=== PATIENT | female | born 1965 | race Caucasian/White ===

== ENCOUNTER 2017-01-18 03:06 | Inpatient (IN) | payer MEDICAID, OTHER ==
[~2017-01-18] VITALS: Ht 162.6 cm; Wt 85.1 kg
[~2017-01-18 03:06] MED LIST: ASPI81TA3 PO; LANT3I SC; LISI-525 PO; Metformin Hcl PO; ZOC20 PO
--- NOTE | 2017-01-18 04:35 | RADRPT ---
PROCEDURE: Noncontrast CT Head. CLINICAL INDICATION: Pain. TECHNIQUE: Noncontrast CT of the head was obtained. The administered radiation dose was CTDI vol = 45 mGy, DLP = 720 mGy-cm. COMPARISON: 06/02/2015 FINDINGS: The ventricles and cortical sulci are mildly enlarged. There is mild decreased attenuation within t he periventricular and subcortical white matter compatible with chronic microvascular changes. There is no acute intracranial hemorrhage or extra-axial fluid collection. There is no mass effect . No midline shift is identified. There is no loss of mccarthy-white differentiation to suggest acute in farction. The orbits are within normal limits. The paranasal sinuses are well aerated. No destructive osseous lesion is identified. IMPRESSION: No acute findings. Mild diffuse parenchymal volume loss and chronic microvascular changes. RPTAT: HIKT .Patrick Gadnhi MD, MD Date Time Electronically viewed and signed by .Patrick Gandhi MD, on 01/18/2017 04:35 .T/
--- NOTE | 2017-01-18 04:39 | RADRPT ---
PROCEDURE: Chest. CLINICAL INDICATION: Chest pain. TECHNIQUE: Single frontal view of the chest was obtained. COMPARISON: 06/02/2015. FINDINGS: The cardiac silhouette is within normal limits. The aortic arch is unremarkable. There is no focal consolidation, vascular congestion or pleural effusion. There is no pneumothorax. IMPRESSION: No evidence for active cardiopulmonary disease. .Deonte Laughlin MD, Date Time Electronically viewed and signed by .Deonte Laughlin MD, on 01/18/2017 04:38 .T/
[2017-01-18 05:08] LABS: ADD SCAN DIFF NO
[2017-01-18 05:12] LABS: BASOPHILS % 0.4 % (0.0-2.0); EOSINOPHILS # 0.2 10^3/ul (0.0-0.5); EOSINOPHILS % 2.6 % (0.0-7.0); HEMATOCRIT 37.6 % (37.0-47.0); HEMOGLOBIN 11.9 g/dl (12.0-16.0); LYMPHOCYTES # 2.8 10^3/ul (0.8-2.9); LYMPHOCYTES % 35.5 % (15.0-51.0); MEAN CORPUSCULAR HEMOGLOBIN 29.6 pg (29.0-33.0); MEAN CORPUSCULAR HGB CONC 31.6 g/dl (32.0-37.0); MEAN CORPUSCULAR VOLUME 93.5 fl (82.0-101.0); MEAN PLATELET VOLUME 11.1 fl (7.4-10.4); MONOCYTE # 0.5 10^3/ul (0.3-0.9); MONOCYTES % 6.4 % (0.0-11.0); NEUTROPHIL # 4.4 10^3/ul (1.6-7.5); NEUTROPHILS % 54.7 % (39.0-77.0); PLATELET COUNT 232 10^3/UL (140-415); RED BLOOD COUNT 4.02 10^6/ul (4.20-5.40); RED CELL DISTRIBUTION WIDTH 12.8 % (11.5-14.5)
[2017-01-18 05:23] LABS: INR 0.89; PT RATIO 0.9
[2017-01-18 05:24] LABS: PARTIAL THROMBOPLASTIN TIME 30.5 Sec (25.0-35.0)
[2017-01-18 05:31] LABS: CHLORIDE 105 mmol/L (97-110); POTASSIUM 4.6 mmol/L (3.5-5.1); SODIUM 141 mmol/L (135-144)
[2017-01-18 05:34] LABS: ANION GAP 12 (8-16); BLOOD UREA NITROGEN 29 mg/dl (7-20); CARBON DIOXIDE 29 mmol/L (21-31); CREATININE 1.42 mg/dl (0.44-1.00)
[2017-01-18 05:35] LABS: CALCIUM 9.1 mg/dl (8.4-10.2); GLUCOSE 97 mg/dl (70-220)
--- NOTE | 2017-01-18 05:41 | ERA ---
ER Documentation Chief Complaint Date/Time DATE: 01/18/17 TIME: 05:40 Chief Complaint weakness, fainting a lot x 3 days, multiple falls x 3 days HPI This is a 51-year-old female weakness and multiple seizure-like episodes over the past 3 days. Patient started on Depakote yesterday but is since had 5 seizures. No fevers no chills no nausea no vomiting no tongue biting. Patient is nonfocal neurological. No other current complaints. ROS All systems reviewed and are negative except as per history of present illness. Medications Home Meds Active Scripts Simvastatin (Simvastatin) 20 Mg Tablet, 20 MG PO HS, #30 TAB 2 Refills Prov:JAMEY WISE MD 06/04/15 [Metformin Hcl] 500 MG TAB No Conflict Check, 1000 MG PO WITH BREAKFAST DINNE, # 60 TAB 2 Refills Prov:JAMEY WISE MD 06/04/15 Lisinopril* (Zestril*) 20 Mg Tab, 20 MG PO DAILY, #30 TAB 2 Refills Prov:JAMEY WISE MD 06/04/15 Aspirin (Aspirin) 81 Mg Chew, 81 MG PO DAILY, #30 TAB 2 Refills Prov:JAMEY WISE MD 06/04/15 Reported Medications Insulin Glargine* (Lantus*) 100 Unit/Ml Soln, 20 UNIT SC DAILY, EA 06/04/15 Allergies Allergies: Coded Allergies: No Known Allergy (Unverified , 06/03/15) PMhx/Soc History of Surgery: Yes (cataract surgery, retina surgery) Anesthesia Reaction: No Hx Neurological Disorder: Yes (neuropathy, possible seizures? hearing/vision loss) Hx Respiratory Disorders: No Hx Cardiac Disorders: Yes (HTN) Hx Psychiatric Problems: No Hx Miscellaneous Medical Probl: Yes (DM, MULTIPLE FALLS, cataracts) Hx Alcohol Use: No Hx Substance Use: No Hx Tobacco Use: No Smoking Status: Never smoker Physical Exam Vitals Vital Signs Date Time Temp Pulse Resp B/P Pulse Ox O2 Delivery O2 Flow Rate FiO2 01/18/17 05:06 72 14 144/58 100 Room Air 01/18/17 03:35 79 18 147/57 100 Room Air 01/18/17 03:11 98.5 87 20 82/49 98 Physical Exam Const: [] Head: Atraumatic Eyes: Normal Conjunctiva ENT: Normal External Ears, Nose and Mouth. Neck: Full range of motion..~ No meningismus. Resp: Clear to auscultation bilaterally Cardio: Regular rate and rhythm, no murmurs Abd: Soft, non tender, non distended. Normal bowel sounds Skin: No petechiae or rashes Back: No midline or flank tenderness Ext: No cyanosis, or edema Neur: Awake and alert Psych: Normal Mood and Affect Result Diagram: 01/18/17 0450 Results 24 hrs Laboratory Tests Test 01/18/17 03:52 01/18/17 04:50 Bedside Glucose 133mg/dL White Blood Count 8.010^3/ul Red Blood Count 4.0210^6/ul Hemoglobin 11.9g/dl Hematocrit 37.6% Mean Corpuscular Volume 93.5fl Mean Corpuscular Hemoglobin 29.6pg Mean Corpuscular Hemoglobin Concent 31.6g/dl Red Cell Distribution Width 12.8% Platelet Count 02909^3/UL Mean Platelet Volume 11.1fl Neutrophils % 54.7% Lymphocytes % 35.5% Monocytes % 6.4% Eosinophils % 2.6% Basophils % 0.4% Nucleated Red Blood Cells % 0.0/100WBC Neutrophils # 4.410^3/ul Lymphocytes # 2.810^3/ul Monocytes # 0.510^3/ul Eosinophils # 0.210^3/ul Basophils # 0.010^3/ul Nucleated Red Blood Cells # 0.010^3/ul Prothrombin Time 12.0Sec Prothrombin Time Ratio 0.9 INR International Normalized Ratio 0.89 Activated Partial Thromboplast Time 30.5Sec Procedures/MDM EKG: Rate/Rhythm: [Normal Sinus Rhythm] QRS, ST, T-waves: [No changes consistent w/ acute ischemia] Impression: [No evidence of ischemia or arrhythmia] Chest X-ray 1V Interpreted by me: Soft Tissue: No acute abnormalities Bones: No acute abnormalities Mediastinum/Cardiac Silhouette/Lungs: [No acute abnormalities] Medical decision-makin year female with what sounds to be recurrent seizures and multiple episodes. At this point I feel patient is to be admitted for stabilization of her seizure diagnosis. Patient will be admitted to hospitalist Departure Diagnosis: Primary Impression: Intractable seizure disorder Condition: Serious TAL LIU Jan 18, 2017 05:41
[2017-01-18 05:52] LABS: TROPONIN-I < 0.012 ng/ml (0.00-0.12)
[2017-01-18] MEDS ORDERED: ONDANSETRON 4 MG INJ IV PRN ×2 (06:30→07:00)
[2017-01-18] MEDS ORDERED: ACETAMINOPHEN 325 MG TAB PO PRN ×2 (06:30→07:00)
[2017-01-18] MEDS ORDERED: PANTOPRAZOLE (EC) 40 MG TAB PO ONE (07:00)
--- NOTE | 2017-01-18 07:29 | HP ---
Date/Time of Note Date/Time of Note DATE: 01/18/17 TIME: 07:25 Assessment/Plan Lines/Catheters IV C[facility]ter Type (from [facility]): Saline Lock Assessment/Plan Assessment/Plan 1. Probable Seizure - admit to telemetry unit - Cont Depakote with as needed ativan - Place neurology consult - Obtain MRI of the brain - Will Check TSH 2. Hx of Diabetes - cont insulin 3. HTN: BP within goal - Cont home med with adjustment as needed 4. Hx of Dyslipidemia - Cont med 5. Presumed DIANNE - IV hydration - Avoid nephrotoxins and renally dose all meds - Renal u/s and nephrology consult as needed HPI/ROS Admit Date/Time Admit Date/Time Hx of Present Illness Patient is a 51 yo female with hx of DM, HTN, DL. diabetic neuropathy who was brought in by family after repeated falls and weakness over the last few days. According to her daughter, within the last few years she has suffered sensory losses related to her diabetes which include mild hearing loss and visual changes. she underwent cataract surgery in November on her left eye. per her daughter she has recently been having 'episodes' in which she starts to laugh, then shake and fall backwards. she has recently been seeing a neurologist for this, has an MRI orderd but yet unscheduled. She started taking depokote yesterday. Today she has had 2 of these events. yesterday she fell in the shower and hurt her right shoulder. no deformity noted. she has generalized weakness throughout. denies head aches and shortness of breath. . PMH/Family/Social Social History Smoking Status: Never smoker Exam/Review of Systems Vital Signs Vitals Vital Signs Date Time Temp Pulse Resp B/P Pulse Ox O2 Delivery O2 Flow Rate FiO2 01/18/17 05:59 69 16 118/78 100 Room Air 01/18/17 03:11 98.5 Labs Result Diagram: 01/18/17 0450 01/18/17 0450 Medications Medications Current Medications Sodium Chloride (NS) 1,000 ml @ 125 mls/hr Q8H IV ; Start 01/18/17 at 07:00 Divalproex Sodium (Depakote) 250 mg BID ONCE PO ; Start 01/18/17 at 09:00; Stop 01/18/17 at 09:01 Ondansetron HCl (Zofran Inj) 4 mg Q6 PRN IV NAUSEA; Start 01/18/17 at 07:00 Acetaminophen (Tylenol Tab) 650 mg Q4 PRN PO FEVER GREATER THAN 100.6; Start at 07:00 TAL GRIMALDO MD Jan 18, 2017 07:29
[2017-01-18] MEDS: SOD CHLORIDE 0.9% 1,000 ML IV SCH ×5 (07:37→23:12)
[2017-01-18] MEDS ORDERED: NACL 0.9% 3 ML SYG IV SCH (09:00)
[2017-01-18] MEDS ORDERED: ASPIRIN 81 MG TAB PO SCH (09:00)
[2017-01-18] MEDS ORDERED: LORAZEPAM 2 MG INJ IV PRN (09:00)
[2017-01-18] MEDS ORDERED: GLUCAGON 1 MG INJ IM PRN (09:00)
[2017-01-18] MEDS ORDERED: GLUCOSE GEL 15 GRAM TUBE BUCCAL PRN (09:00)
[2017-01-18] MEDS ORDERED: DEXTROSE 50% 50 ML SYRINGE IV PRN ×2 (09:00)
[2017-01-18] MEDS ORDERED: DIVALPROEX (EC) 250 MG TAB PO ONE (09:00)
[2017-01-18] MEDS ORDERED: GLUCOSE GEL 15 GRAM TUBE PO PRN ×2 (09:00)
[2017-01-18] MEDS: ASPIRIN 81 MG TAB PO SCH (09:24)
[2017-01-18] MEDS: INSULIN GLARGINE [LANtus] 3 ML PEN SC SCH (10:20)
[2017-01-18] MEDS: LISINOPRIL 20 MG TAB PO SCH (10:21)
--- NOTE | 2017-01-18 11:45 | CONS ---
Date/Time of Note Date/Time of Note DATE: 01/18/17 TIME: 11:29 Assessment/Plan Assessment/Plan Chief Complaint/Hosp Course 51 year old female with history of diabetic neuropathy, hypertension, HLD frequent falls presents with 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 -MRI Brain w/o contrast planned this afternoon -Routine EEG check Depakote level -TSH, check B12, optimization of diabetes -PT/OT eval will follow for further recommendations Problems: Consultation Date/Type/Reason Admit Date/Time 01/18/17 Date of Consultation: Jan 18, 2017 Type of Consultation: Neurology Reason for Consultation evaluation for seizures, AMS Referring Provider: MEL MAYO Hx of Present Illness 51 year old female with history of DM, HTN, diabetic neuropathy with frequent falls and increasing weakness, s/p cataract surgery on left eye brought in by family for suspected gelastic seizures. Per documentation she has episodes where she laughs, has generalized shaking and falls backwards. No family at bedside to provide further history and patient reports she has been falling for over 2 hours, denies any seizure hx. Depakote was apparently initiated yesterday from an outside neurologist, the patient denies any new meds. falls Past Medical History diabetes neuropathy Social History Smoking Status: Never smoker Exam/Review of Systems Vital Signs Vitals Vital Signs Date Time Temp Pulse Resp B/P Pulse Ox O2 Delivery O2 Flow Rate FiO2 01/18/17 09:53 98.5 80 16 137/70 97 Room Air Exam awake and alert seems encephalopathic slow to respond left sided neglect CN: left pupil irregular non reactive right 2 mm reactive, EOMI no sig. facial asymmetry tongue midline Motor: no drift in arms strength is 5/5, LE 3/5 lifts briefly anti-gravity poor effort Sensory: left sided sensory neglect to DSS Coordination poor cooperation unable to test Reflexes: 2+ UE, 1+ KJ absent AJ toes are downgoing Results Result Diagram: 01/18/17 0450 01/18/17 0450 Results 24 hrs Laboratory Tests Test 01/18/17 03:52 01/18/17 04:50 01/18/17 10:18 Bedside Glucose 133 196 White Blood Count 8.0 Red Blood Count 4.02 #L Hemoglobin 11.9 #L Hematocrit 37.6 # Mean Corpuscular Volume 93.5 Mean Corpuscular Hemoglobin 29.6 Mean Corpuscular Hemoglobin Concent 31.6 L Red Cell Distribution Width 12.8 Platelet Count 232 Mean Platelet Volume 11.1 H Neutrophils % 54.7 Lymphocytes % 35.5 Monocytes % 6.4 Eosinophils % 2.6 Basophils % 0.4 Nucleated Red Blood Cells % 0.0 Neutrophils # 4.4 Lymphocytes # 2.8 Monocytes # 0.5 Eosinophils # 0.2 Basophils # 0.0 Nucleated Red Blood Cells # 0.0 Prothrombin Time 12.0 L Prothrombin Time Ratio 0.9 INR International Normalized Ratio 0.89 Activated Partial Thromboplast Time 30.5 Sodium Level 141 Potassium Level 4.6 Chloride Level 105 Carbon Dioxide Level 29 Anion Gap 12 Blood Urea Nitrogen 29 H Creatinine 1.42 H Glucose Level 97 Calcium Level 9.1 Troponin I < 0.012 Valproic Acid (Depakene) Level 36 L Medications Medications Current Medications Sodium Chloride (NS) 1,000 ml @ 125 mls/hr Q8H IV Last administered on 07:37; Admin Dose 125 MLS/HR; Start 01/18/17 at 07:00 Ondansetron HCl 4 mg 4 mg Q6 PRN IV NAUSEA; Start 01/18/17 at 07:00 Sodium Chloride (NS) 1,000 ml @ 100 mls/hr Q10H IV Last administered on 09:28; Admin Dose 100 MLS/HR; Start 01/18/17 at 08:47; Stop 01/19/17 at 08: 00 Lorazepam (Ativan) 2 mg Q1H PRN IV seizure; Start 01/18/17 at 09:00 Aspirin (Aspirin) 81 mg DAILY PO Last administered on 01/18/17 09:24; Admin Dose 81 MG; Start 01/18/17 at 09:00 Acetaminophen (Tylenol Tab) 650 mg Q6H PRN PO PAIN LEVEL 1-3 OR FEVER; Start at 09:00 Insulin Glargine (Lantus) 20 unit DAILY SC Last administered on 01/18/17 10:20 ; Admin Dose 20 UNIT; Start 01/18/17 at 09:00 Lisinopril (Zestril) 20 mg DAILY PO Last administered on 01/18/17 10:21; Admin Dose 20 MG; Start 01/18/17 at 09:00 Atorvastatin Calcium (Lipitor) 10 mg DAILY@21 PO ; Start 01/18/17 at 21:00 Miscellaneous Information 1 ea NOTE XX ; Start 01/18/17 at 09:00 Glucose (Glutose) 15 gm Q15M PRN PO DECREASED GLUCOSE; Start 01/18/17 at 09:00 Glucose (Glutose) 22.5 gm Q15M PRN PO DECREASED GLUCOSE; Start 01/18/17 at 09: 00 Dextrose (D50w Syringe) 25 ml Q15M PRN IV DECREASED GLUCOSE; Start 01/18/17 at 09:00 Dextrose (D50w Syringe) 50 ml Q15M PRN IV DECREASED GLUCOSE; Start 01/18/17 at 09:00 Glucagon (Glucagen) 1 mg Q15M PRN IM DECREASED GLUCOSE; Start 01/18/17 at 09:00 Glucose (Glutose) 15 gm Q15M PRN BUCCAL DECREASED GLUCOSE; Start 01/18/17 at 09 :00 CARLTON CHI MD Jan 18, 2017 11:40
--- NOTE | 2017-01-18 12:02 | RADRPT ---
PROCEDURE: MR Brain without contrast. CLINICAL INDICATION: Seizures TECHNIQUE: An MRI of the brain was performed on a high-resolution MR scanner utilizing the followi ng sequences: Sagittal and axial T1 weighted, axial T2 weighted, axial FLAIR, coronal GRE, and axial diffusion weighted with ADC mapping. Images were reviewed high-resolution PACS workstation. No con trast was administered. COMPARISON: Head CT earlier today FINDINGS: No acute parenchymal hemorrhage, mass effect, or midline shift. No evidence of recent infarct. Scatt ered subcortical, deep, and periventricular white matter T2-weighted/FLAIR hyperintensities are nons pecific. Thin right ocular lens. Curvilinear T1/FLAIR hyperintensity is identified in the right deanne be vitreous chamber. Mesial temporal lobes demonstrate normal signal intensity, volume and director enterprise data architecture ure. The ventricles are stable size. Normal flow voids are visible in the proximal intracranial arteries suggesting their patency. No significant opacification of the paranasal sinuses or mastoids. IMPRESSION: No acute intracranial abnormality identified. No evidence of recent infarct. No evidence of mesial temporal sclerosis. Scattered cerebral white matter signal changes are nonspecific and can be due to chronic headaches, microvascular disease, vasculitis, prior infection/trauma, or other etiologies. Thin right ocular lens could be due to prior lens replacement. Curvilinear T1/FLAIR hyperintensity is identified in the right globe vitreous chamber which may be due to prior hemorrhage, infection, o r inflammation. Recommend correlation with patient history and ophthalmic exam. RPTAT: AA .Epifanio Cerrato MD, Date Time Electronically viewed and signed by .Epifanio Cerrato MD, on 01/18/2017 12:02 .T/
[2017-01-18 16:38] VITALS: TEMP 98.5
--- NOTE | 2017-01-18 17:57 | SP ---
DATE OF PROCEDURE: 01/18/2017 TYPE OF REPORT: EEG. HISTORY: The patient is a 51-year-old woman with history of diabetic neuropathy with frequent falls. She was seen to be having episodes of uncontrolled laughing and generalized shaking and falling ba ckwards. EEG is to rule out seizure activity. CURRENT MEDICATIONS: Depakote. PROCEDURE: Utilizing a 16-channel EEG machine, cap scalp electrodes were applied in accordance with International 10-20 system. [id number] and [id number] montages were displayed. Electrical i mpedances were measured and reported. DESCRIPTION: During the resting state, posterior dominant rhythm of about 8 to 9 Hz was seen bihemi spherically. Photic stimulation had a good response. Hyperventilation was not performed. Bitempor al frontal sharps were noted at times during the tracing. INTERPRETATION: This is an abnormal EEG because of presence of bifrontal temporal sharps which coul d be epileptogenic. Please correlate these findings with the patient's clinical picture. Dictated By: AMEYA ODOM/STEPHANIE Conf#: [id number] DID#: [id number]
[2017-01-18] MEDS: metFORMIN 500 MG TAB PO SCH (18:00)
[2017-01-18 19:40] VITALS: BP 161/75; PULSE 82; RESP 19; Ht 162.6 cm; Wt 85.1 kg
[2017-01-18 20:00] VITALS: BP 161/75; RESP 19
[2017-01-18] MEDS ORDERED: DIVALPROEX (ER) 500 MG TAB PO ONE (21:00)
[2017-01-18] MEDS ORDERED: ATORVASTATIN 10 MG TAB PO SCH (21:00)
[2017-01-18] MEDS: DIVALPROEX (ER) 500 MG TAB PO SCH (22:37)
[2017-01-18] MEDS: INSULIN ASPART [NOVOLOG] 3 ML PEN SC SCH (22:39)
[2017-01-19] VITALS (12 sets, daily range): BP systolic 119–165; BP diastolic 61–77; PULSE 67–80; RESP 17–18
[2017-01-19] MEDS ORDERED: ACCU-CHEK XX SCH (02:00)
[2017-01-19] MEDS: ACCU-CHEK XX SCH (02:44)
[2017-01-19] MEDS: SOD CHLORIDE 0.9% 1,000 ML IV SCH ×4 (04:47→23:00)
[2017-01-19 07:49] LABS: ADD SCAN DIFF NO
[2017-01-19 07:58] LABS: BASOPHILS % 0.4 % (0.0-2.0); EOSINOPHILS # 0.2 10^3/ul (0.0-0.5); EOSINOPHILS % 2.7 % (0.0-7.0); HEMATOCRIT 32.7 % (37.0-47.0); HEMOGLOBIN 10.3 g/dl (12.0-16.0); LYMPHOCYTES # 3.5 10^3/ul (0.8-2.9); LYMPHOCYTES % 43.1 % (15.0-51.0); MEAN CORPUSCULAR HEMOGLOBIN 30.1 pg (29.0-33.0); MEAN CORPUSCULAR HGB CONC 31.5 g/dl (32.0-37.0); MEAN CORPUSCULAR VOLUME 95.6 fl (82.0-101.0); MEAN PLATELET VOLUME 10.9 fl (7.4-10.4); MONOCYTE # 0.5 10^3/ul (0.3-0.9); MONOCYTES % 6.7 % (0.0-11.0); NEUTROPHIL # 3.8 10^3/ul (1.6-7.5); NEUTROPHILS % 46.9 % (39.0-77.0); PLATELET COUNT 196 10^3/UL (140-415); RED BLOOD COUNT 3.42 10^6/ul (4.20-5.40); RED CELL DISTRIBUTION WIDTH 13.1 % (11.5-14.5); WHITE BLOOD COUNT 8.1 10^3/ul (4.8-10.8)
[2017-01-19 08:08] LABS: ALBUMIN 3.3 g/dl (3.3-4.9)
[2017-01-19 08:09] LABS: POTASSIUM 5.6 mmol/L (3.5-5.1)
[2017-01-19 08:11] LABS: ALBUMIN/GLOBULIN RATIO 0.8; BILIRUBIN,INDIRECT 0.2 mg/dl (0-1.1); BILIRUBIN,TOTAL 0.2 mg/dl (0.2-1.3); CREATININE 1.24 mg/dl (0.44-1.00); TOTAL PROTEIN 7.4 g/dl (6.1-8.1)
[2017-01-19 08:12] LABS: CALCIUM 8.5 mg/dl (8.4-10.2); CHOL/HDL RATIO 6.1 RATIO; MAGNESIUM 2.8 mg/dl (1.7-2.5)
[2017-01-19 08:41] LABS: THYROID STIMULATING HORMONE 1.68 MIU/L (0.465-4.680)
[2017-01-19] MEDS: DIVALPROEX (ER) 500 MG TAB PO SCH (08:42)
[2017-01-19] MEDS: LISINOPRIL 20 MG TAB PO SCH (08:42)
[2017-01-19] MEDS: metFORMIN 500 MG TAB PO SCH ×2 (08:42→17:50)
[2017-01-19] MEDS: ASPIRIN 81 MG TAB PO SCH (08:44)
[2017-01-19] MEDS: INSULIN ASPART [NOVOLOG] 3 ML PEN SC SCH ×6 (08:46→20:41)
[2017-01-19 12:29] LABS: POTASSIUM 5.5 mmol/L (3.5-5.1)
[2017-01-19 12:32] LABS: CREATININE 1.13 mg/dl (0.44-1.00)
[2017-01-19 12:33] LABS: CALCIUM 8.5 mg/dl (8.4-10.2)
[2017-01-19] MEDS: INSULIN GLARGINE [LANtus] 3 ML PEN SC SCH (12:36)
--- NOTE | 2017-01-19 12:45 | PN ---
Date/Time of Note Date/Time of Note DATE: 01/19/17 TIME: 11:39 Assessment/Plan VTE Prophylaxis VTE Prophylaxis Intervention: SCD's Lines/Catheters IV Catheter Type (from Nrsg): Peripheral IV Urinary Cath still in place: No Assessment/Plan Assessment/Plan 51 yo female with: 1. 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 Frequent falls Seizures confirmed on EEG and MRI brain with no acute findings but wll discuss with Neurology Cont Depakote per Neurology with Ativan prn, will discuss to increase Depakote to 500 mg po tid? Appreciate recommendations from Neurology, follow up further recs today TFTs and B12 pending . PT/OT eval pending 2. Diabetes Mellitus, Insulin requiring, continue Lantus and Metformin for now, adding pre meal insulin and continue SSI. A1c 7.6 DM education consult 3. Diabetic Neuropathy: for now stable 4. Hypertension: Continue Lisinopril. BP stable 5. Hyperlipidemia. Increase Lipitor to 40 mg po qhs. 5. Acute Kidney Injury: renal function improving with IVF, avoid nephrotoxins and renally dose all meds Renal US pending and IVF Repeat BMP pending today to f/u K level Prophylaxis: SCDs and Pepcid for GI ppx Disposition: Follow up with Neurology recs today Subjective 24 Hr Interval Summary Free Text/Dictation Patient lethargic and somnolent this AM, titrating Depakote doses PT/OT pending Afebrile, renal function improving Exam/Review of Systems Vital Signs Vitals Vital Signs Date Time Temp Pulse Resp B/P Pulse Ox O2 Delivery O2 Flow Rate FiO2 01/19/17 11:35 98.6 76 18 165/77 95 01/18/17 19:40 Nasal Cannula 2.0 Intake and Output 01/18/17 01/18/17 01/19/17 15:00 23:00 07:00 Intake Total 300 ml Balance 300 ml Exam Constitutional: alert, frail, other (lethargic) Respiratory: clear to auscultation, normal air movement Cardiovascular: nl pulses, regular rate and rhythm Gastrointestinal: non-tender, soft Musculoskeletal: nl extremities to inspection Extremities: normal pulses, other (no edema, clubbing or cyanosis ) Neurological: OIL SPREADER OPERATOR II-XII intact, lethargic, other (generalised weakness, possibly post ictal ) Results Result Diagram: 01/19/17 0630 01/19/17 0500 Results 24 hrs Laboratory Tests Test 01/18/17 14:55 01/18/17 21:45 01/19/17 02:03 01/19/17 05:00 Valproic Acid (Depakene) Level 27 L Bedside Glucose 274 H 270 H Sodium Level 139 Potassium Level 5.6 H Chloride Level 107 Carbon Dioxide Level 29 Anion Gap 9 Blood Urea Nitrogen 36 H Creatinine 1.24 H Glucose Level 254 #H Calcium Level 8.5 Magnesium Level 2.8 H Total Bilirubin 0.2 Direct Bilirubin 0.00 Indirect Bilirubin 0.2 Aspartate Amino Transf (AST/SGOT) 24 Alanine Aminotransferase (ALT/SGPT) 28 Alkaline Phosphatase 94 Total Protein 7.4 Albumin 3.3 Globulin 4.10 H Albumin/Globulin Ratio 0.80 Triglycerides Level 257 H Cholesterol Level 220 H LDL Cholesterol, Calculated 133 HDL Cholesterol 36 L Cholesterol/HDL Ratio 6.1 Thyroid Stimulating Hormone (TSH) 1.680 Test 01/19/17 06:30 01/19/17 06:38 01/19/17 08:08 White Blood Count 8.1 Red Blood Count 3.42 L Hemoglobin 10.3 L Hematocrit 32.7 L Mean Corpuscular Volume 95.6 Mean Corpuscular Hemoglobin 30.1 Mean Corpuscular Hemoglobin Concent 31.5 L Red Cell Distribution Width 13.1 Platelet Count 196 Mean Platelet Volume 10.9 H Neutrophils % 46.9 Lymphocytes % 43.1 Monocytes % 6.7 Eosinophils % 2.7 Basophils % 0.4 Nucleated Red Blood Cells % 0.0 Neutrophils # 3.8 Lymphocytes # 3.5 H Monocytes # 0.5 Eosinophils # 0.2 Basophils # 0.0 Nucleated Red Blood Cells # 0.0 Hemoglobin A1c 7.6 H Phosphorus Level 4.5 Free Thyroxine 0.89 Bedside Glucose 223 H Medications Medications Current Medications Sodium Chloride (NS) 1,000 ml @ 125 mls/hr Q8H IV Last administered on 07:36; Admin Dose 125 MLS/HR; Start 01/18/17 at 07:00 Ondansetron HCl (Zofran Inj) 4 mg Q6 PRN IV NAUSEA; Start 01/18/17 at 07:00 Lorazepam (Ativan) 2 mg Q1H PRN IV seizure; Start 01/18/17 at 09:00 Aspirin (Aspirin) 81 mg DAILY PO Last administered on 01/19/17 08:44; Admin Dose 81 MG; Start 01/18/17 at 09:00 Acetaminophen (Tylenol Tab) 650 mg Q6H PRN PO PAIN LEVEL 1-3 OR FEVER; Start at 09:00 Insulin Glargine (Lantus) 20 unit DAILY SC Last administered on 01/18/17 10:20 ; Admin Dose 20 UNIT; Start 01/18/17 at 09:00 Lisinopril (Zestril) 20 mg DAILY PO Last administered on 01/19/17 08:42; Admin Dose 20 MG; Start 01/18/17 at 09:00 Atorvastatin Calcium (Lipitor) 10 mg DAILY@21 PO Last administered on 21:46; Admin Dose 10 MG; Start 01/18/17 at 21:00 Miscellaneous Information 1 ea NOTE XX ; Start 01/18/17 at 09:00 Glucose (Glutose) 15 gm Q15M PRN PO DECREASED GLUCOSE; Start 01/18/17 at 09:00 Glucose (Glutose) 22.5 gm Q15M PRN PO DECREASED GLUCOSE; Start 01/18/17 at 09: 00 Dextrose (D50w Syringe) 25 ml Q15M PRN IV DECREASED GLUCOSE; Start 01/18/17 at 09:00 Dextrose (D50w Syringe) 50 ml Q15M PRN IV DECREASED GLUCOSE; Start 01/18/17 at 09:00 Glucagon (Glucagen) 1 mg Q15M PRN IM DECREASED GLUCOSE; Start 01/18/17 at 09:00 Glucose (Glutose) 15 gm Q15M PRN BUCCAL DECREASED GLUCOSE; Start 01/18/17 at 09 :00 Divalproex Sodium (Depakote Er) 500 mg BID PO Last administered on 01/19/17 08 :42; Admin Dose 500 MG; Start 01/18/17 at 21:00 Diagnostic Test (Pha) (Accu-Chek) 1 ea 02 XX Last administered on 01/19/17 02: 44; Admin Dose 1 EA; Start 01/19/17 at 02:00 Influenza Virus Vaccine (Fluzone) 0.5 ml ONCE ONCE IM* ; Start 01/20/17 at 09:00 ; Stop 01/20/17 at 09:01 Procedures Procedures PROCEDURE: MR Brain without contrast. CLINICAL INDICATION: Seizures TECHNIQUE: An MRI of the brain was performed on a high-resolution MR scanner utilizing the following sequences: Sagittal and axial T1 weighted, axial T2 weighted, axial FLAIR, coronal GRE, and axial diffusion weighted with ADC mapping. Images were reviewed high-resolution PACS workstation. No contrast was administered. COMPARISON: Head CT earlier today FINDINGS: No acute parenchymal hemorrhage, mass effect, or midline shift. No evidence of recent infarct. Scattered subcortical, deep, and periventricular white matter T2 -weighted/FLAIR hyperintensities are nonspecific. Thin right ocular lens. Curvilinear T1/FLAIR hyperintensity is identified in the right globe vitreous chamber. Mesial temporal lobes demonstrate normal signal intensity, volume and architecture. The ventricles are stable size. Normal flow voids are visible in the proximal intracranial arteries suggesting their patency. No significant opacification of the paranasal sinuses or mastoids. IMPRESSION: No acute intracranial abnormality identified. No evidence of recent infarct. No evidence of mesial temporal sclerosis. Scattered cerebral white matter signal changes are nonspecific and can be due to chronic headaches, microvascular disease, vasculitis, prior infection/trauma , or other etiologies. Thin right ocular lens could be due to prior lens replacement. Curvilinear T1/ FLAIR hyperintensity is identified in the right globe vitreous chamber which may be due to prior hemorrhage, infection, or inflammation. Recommend correlation with patient history and ophthalmic exam. DANYELL SALAMANCA Jan 19, 2017 12:01
--- NOTE | 2017-01-19 15:59 | CONS ---
Date/Time of Note Date/Time of Note DATE: 01/19/17 TIME: 15:53 Consult Date/Type/Reason Admit Date/Time Jan 18, 2017 at 05:45 Initial Consult Date 01/18/17 Type of Consultation: Neurology Reason for Consultation seizures Ordering Provider: MEL MAYO Subjective no seizures overnight remained stable EEG showed bifrontal temporal sharps Objective Vital Signs Date Time Temp Pulse Resp B/P Pulse Ox O2 Delivery O2 Flow Rate FiO2 01/19/17 15:12 98.3 75 17 135/65 96 01/18/17 19:40 Nasal Cannula 2.0 Intake and Output 01/18/17 01/18/17 01/19/17 15:00 23:00 07:00 Intake Total 300 ml Balance 300 ml Exam awake and alert oriented to self, VPH follows commands slowly slow to respond CN: left pupil irregular non reactive right 2 mm reactive, EOMI no sig. facial asymmetry tongue midline Motor: no drift in arms strength is 5/5, LE briefly anti-gravity poor effort Sensory: left sided sensory neglect to DSS Coordination poor cooperation unable to test Reflexes: 2+ UE, 1+ KJ absent AJ toes are downgoing Results/Medications Result Diagram: 01/19/17 0630 01/19/17 1204 Results 24 hrs Laboratory Tests Test 01/18/17 21:45 01/19/17 02:03 01/19/17 05:00 01/19/17 06:30 Bedside Glucose 274 H 270 H Sodium Level 139 Potassium Level 5.6 H Chloride Level 107 Carbon Dioxide Level 29 Anion Gap 9 Blood Urea Nitrogen 36 H Creatinine 1.24 H Glucose Level 254 #H Calcium Level 8.5 Magnesium Level 2.8 H Total Bilirubin 0.2 Direct Bilirubin 0.00 Indirect Bilirubin 0.2 Aspartate Amino Transf (AST/SGOT) 24 Alanine Aminotransferase (ALT/SGPT) 28 Alkaline Phosphatase 94 Total Protein 7.4 Albumin 3.3 Globulin 4.10 H Albumin/Globulin Ratio 0.80 Triglycerides Level 257 H Cholesterol Level 220 H LDL Cholesterol, Calculated 133 HDL Cholesterol 36 L Cholesterol/HDL Ratio 6.1 Thyroid Stimulating Hormone (TSH) 1.680 White Blood Count 8.1 Red Blood Count 3.42 L Hemoglobin 10.3 L Hematocrit 32.7 L Mean Corpuscular Volume 95.6 Mean Corpuscular Hemoglobin 30.1 Mean Corpuscular Hemoglobin Concent 31.5 L Red Cell Distribution Width 13.1 Platelet Count 196 Mean Platelet Volume 10.9 H Neutrophils % 46.9 Lymphocytes % 43.1 Monocytes % 6.7 Eosinophils % 2.7 Basophils % 0.4 Nucleated Red Blood Cells % 0.0 Neutrophils # 3.8 Lymphocytes # 3.5 H Monocytes # 0.5 Eosinophils # 0.2 Basophils # 0.0 Nucleated Red Blood Cells # 0.0 Hemoglobin A1c 7.6 H Phosphorus Level 4.5 Test 01/19/17 06:38 01/19/17 08:08 01/19/17 11:59 01/19/17 12:04 Vitamin B12 Level 809 Free Thyroxine 0.89 Bedside Glucose 223 H 209 Sodium Level 140 Potassium Level 5.5 H Chloride Level 107 Carbon Dioxide Level 28 Anion Gap 11 Blood Urea Nitrogen 32 H Creatinine 1.13 H Glucose Level 225 H Calcium Level 8.5 Medications Current Medications Sodium Chloride (NS) 1,000 ml @ 125 mls/hr Q8H IV Last administered on 07:36; Admin Dose 125 MLS/HR; Start 01/18/17 at 07:00 Ondansetron HCl (Zofran Inj) 4 mg Q6 PRN IV NAUSEA; Start 01/18/17 at 07:00 Lorazepam (Ativan) 2 mg Q1H PRN IV seizure; Start 01/18/17 at 09:00 Aspirin (Aspirin) 81 mg DAILY PO Last administered on 01/19/17 08:44; Admin Dose 81 MG; Start 01/18/17 at 09:00 Acetaminophen (Tylenol Tab) 650 mg Q6H PRN PO PAIN LEVEL 1-3 OR FEVER; Start at 09:00 Insulin Glargine (Lantus) 20 unit DAILY SC Last administered on 01/19/17 12:36 ; Admin Dose 20 UNIT; Start 01/18/17 at 09:00 Lisinopril (Zestril) 20 mg DAILY PO Last administered on 01/19/17 08:42; Admin Dose 20 MG; Start 01/18/17 at 09:00 Miscellaneous Information 1 ea NOTE XX ; Start 01/18/17 at 09:00 Glucose (Glutose) 15 gm Q15M PRN PO DECREASED GLUCOSE; Start 01/18/17 at 09:00 Glucose (Glutose) 22.5 gm Q15M PRN PO DECREASED GLUCOSE; Start 01/18/17 at 09: 00 Dextrose (D50w Syringe) 25 ml Q15M PRN IV DECREASED GLUCOSE; Start 01/18/17 at 09:00 Dextrose (D50w Syringe) 50 ml Q15M PRN IV DECREASED GLUCOSE; Start 01/18/17 at 09:00 Glucagon (Glucagen) 1 mg Q15M PRN IM DECREASED GLUCOSE; Start 01/18/17 at 09:00 Glucose (Glutose) 15 gm Q15M PRN BUCCAL DECREASED GLUCOSE; Start 01/18/17 at 09 :00 Diagnostic Test (Pha) (Accu-Chek) 1 ea 02 XX Last administered on 01/19/17t 02: 44; Admin Dose 1 EA; Start 01/19/17 at 02:00 Influenza Virus Vaccine (Fluzone) 0.5 ml ONCE ONCE IM* ; Start 01/20/17 at 09:00 ; Stop 01/20/17 at 09:01 Atorvastatin Calcium (Lipitor) 40 mg DAILY@21 PO ; Start 01/19/17 at 21:00 Hydralazine HCl (Apresoline) 10 mg Q8H PRN IV ELEVATED BLOOD PRESSURE; Start at 13:00 Divalproex Sodium (Depakote Er) 750 mg BID PO ; Start 01/19/17 at 21:00 Assessment/Plan Chief Complaint/Hosp Course 51 year old female with history of diabetic neuropathy, hypertension, HLD frequent falls presents with 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 EEG showed frontal temporal sharps with epileptogenic potential. MRI Brain w/o contrast unrevealing for any acute process. Recommendations: -may increase Depakote to 750 mg q12h, recheck level -low dose ativan prn for further seizure activity -seizure precautions -PT evaluation placed, may benefit from outpatient PT for frequent falls dc planning Problems: CARLTON CHI MD Jan 19, 2017 15:59
[2017-01-19] MEDS: ATORVASTATIN 40 MG TAB PO SCH (20:42)
[2017-01-19] MEDS: DIVALPROEX (ER) 250 MG TAB PO SCH (21:26)
[2017-01-19] MEDS: hydrALAzine 20 MG INJ IV PRN (23:53)
[2017-01-20] VITALS (12 sets, daily range): BP systolic 142–175; BP diastolic 56–77; PULSE 75–90; RESP 17–18
[2017-01-20] MEDS: ACCU-CHEK XX SCH (02:07)
[2017-01-20 07:43] LABS: ADD SCAN DIFF NO
[2017-01-20 07:51] LABS: BASOPHILS % 0.3 % (0.0-2.0); EOSINOPHILS # 0.2 10^3/ul (0.0-0.5); EOSINOPHILS % 2.7 % (0.0-7.0); HEMOGLOBIN 10.1 g/dl (12.0-16.0); LYMPHOCYTES # 3.7 10^3/ul (0.8-2.9); LYMPHOCYTES % 41.8 % (15.0-51.0); MEAN CORPUSCULAR HEMOGLOBIN 30.4 pg (29.0-33.0); MEAN CORPUSCULAR HGB CONC 32.6 g/dl (32.0-37.0); MEAN CORPUSCULAR VOLUME 93.4 fl (82.0-101.0); MEAN PLATELET VOLUME 10.8 fl (7.4-10.4); MONOCYTE # 0.6 10^3/ul (0.3-0.9); MONOCYTES % 6.9 % (0.0-11.0); NEUTROPHIL # 4.2 10^3/ul (1.6-7.5); NEUTROPHILS % 48.1 % (39.0-77.0); PLATELET COUNT 206 10^3/UL (140-415); RED BLOOD COUNT 3.32 10^6/ul (4.20-5.40); RED CELL DISTRIBUTION WIDTH 12.6 % (11.5-14.5); WHITE BLOOD COUNT 8.8 10^3/ul (4.8-10.8)
[2017-01-20 08:00] LABS: PHOSPHORUS 3.7 mg/dl (2.5-4.9)
[2017-01-20 08:01] LABS: POTASSIUM 4.8 mmol/L (3.5-5.1)
[2017-01-20 08:04] LABS: CALCIUM 8.5 mg/dl (8.4-10.2)
[2017-01-20] MEDS: SOD CHLORIDE 0.9% 1,000 ML IV SCH ×2 (08:20→14:27)
[2017-01-20] MEDS: DIVALPROEX (ER) 250 MG TAB PO SCH ×2 (08:20→20:37)
[2017-01-20] MEDS: metFORMIN 500 MG TAB PO SCH ×2 (08:21→17:35)
[2017-01-20] MEDS: LISINOPRIL 20 MG TAB PO SCH ×2 (08:21→20:38)
[2017-01-20] MEDS: ACETAMINOPHEN 325 MG TAB PO PRN ×2 (08:21→23:51)
[2017-01-20] MEDS: ASPIRIN 81 MG TAB PO SCH (08:21)
[2017-01-20] MEDS: INSULIN ASPART [NOVOLOG] 3 ML PEN SC SCH ×7 (08:26→20:40)
[2017-01-20] MEDS: INSULIN GLARGINE [LANtus] 3 ML PEN SC SCH (08:28)
[2017-01-20] MEDS ORDERED: INFLUENZA VIRUS VACCINE 0.5 ML (DISPENSING) IM* ONE (09:00)
--- NOTE | 2017-01-20 11:54 | CONS ---
Date/Time of Note Date/Time of Note DATE: 01/20/17 TIME: 11:51 Consult Date/Type/Reason Admit Date/Time Jan 18, 2017 at 05:45 Initial Consult Date 01/18/17 Type of Consultation: Neurology Reason for Consultation seizure management Ordering Provider: MEL MAYO Subjective no events overnight encephalopathy improving Objective Vital Signs Date Time Temp Pulse Resp B/P Pulse Ox O2 Delivery O2 Flow Rate FiO2 01/20/17 11:40 98.1 77 18 158/67 96 01/18/17 19:40 Nasal Cannula 2.0 Intake and Output 01/19/17 01/19/17 01/20/17 15:00 23:00 07:00 Intake Total 850 ml 200 ml Output Total 1600 ml Balance -750 ml 200 ml Exam awake and alert oriented to self, VPH follows commands slowly slow to respond CN: left pupil irregular non reactive right 2 mm reactive, EOMI no sig. facial asymmetry tongue midline Motor: no drift in arms strength is 5/5, LE briefly anti-gravity poor effort Sensory: left sided sensory neglect to DSS Coordination poor cooperation unable to test Reflexes: 2+ UE, 1+ KJ absent AJ toes are downgoing Results/Medications Result Diagram: 01/20/17 0710 01/20/17 0710 Results 24 hrs Laboratory Tests Test 01/19/17 11:59 01/19/17 12:04 01/19/17 16:30 01/19/17 20:41 Bedside Glucose 209 83 141 Sodium Level 140 Potassium Level 5.5 H Chloride Level 107 Carbon Dioxide Level 28 Anion Gap 11 Blood Urea Nitrogen 32 H Creatinine 1.13 H Glucose Level 225 H Calcium Level 8.5 Test 01/20/17 07:10 01/20/17 07:59 01/20/17 11:38 White Blood Count 8.8 Red Blood Count 3.32 L Hemoglobin 10.1 L Hematocrit 31.0 L Mean Corpuscular Volume 93.4 Mean Corpuscular Hemoglobin 30.4 Mean Corpuscular Hemoglobin Concent 32.6 Red Cell Distribution Width 12.6 Platelet Count 206 Mean Platelet Volume 10.8 H Neutrophils % 48.1 Lymphocytes % 41.8 Monocytes % 6.9 Eosinophils % 2.7 Basophils % 0.3 Nucleated Red Blood Cells % 0.0 Neutrophils # 4.2 Lymphocytes # 3.7 H Monocytes # 0.6 Eosinophils # 0.2 Basophils # 0.0 Nucleated Red Blood Cells # 0.0 Sodium Level 141 Potassium Level 4.8 Chloride Level 108 Carbon Dioxide Level 28 Anion Gap 10 Blood Urea Nitrogen 23 H Creatinine 1.00 Glucose Level 161 Calcium Level 8.5 Phosphorus Level 3.7 Magnesium Level 2.0 Valproic Acid (Depakene) Level 53 Bedside Glucose 169 113 Medications Current Medications Sodium Chloride (NS) 1,000 ml @ 125 mls/hr Q8H IV Last administered on 08:20; Admin Dose 125 MLS/HR; Start 01/18/17 at 07:00 Ondansetron HCl (Zofran Inj) 4 mg Q6 PRN IV NAUSEA; Start 01/18/17 at 07:00 Lorazepam (Ativan) 2 mg Q1H PRN IV seizure; Start 01/18/17 at 09:00 Aspirin (Aspirin) 81 mg DAILY PO Last administered on 01/20/17 08:21; Admin Dose 81 MG; Start 01/18/17 at 09:00 Acetaminophen (Tylenol Tab) 650 mg Q6H PRN PO PAIN LEVEL 1-3 OR FEVER Last administered on 01/20/17 08:21; Admin Dose 650 MG; Start 01/18/17 at 09:00 Insulin Glargine (Lantus) 20 unit DAILY SC Last administered on 01/20/17 08:28 ; Admin Dose 20 UNIT; Start 01/18/17 at 09:00 Lisinopril (Zestril) 20 mg DAILY PO Last administered on 01/20/17 08:21; Admin Dose 20 MG; Start 01/18/17 at 09:00 Miscellaneous Information 1 ea NOTE XX ; Start 01/18/17 at 09:00 Glucose (Glutose) 15 gm Q15M PRN PO DECREASED GLUCOSE; Start 01/18/17 at 09:00 Glucose (Glutose) 22.5 gm Q15M PRN PO DECREASED GLUCOSE; Start 01/18/17 at 09: 00 Dextrose (D50w Syringe) 25 ml Q15M PRN IV DECREASED GLUCOSE; Start 01/18/17 at 09:00 Dextrose (D50w Syringe) 50 ml Q15M PRN IV DECREASED GLUCOSE; Start 01/18/17 at 09:00 Glucagon (Glucagen) 1 mg Q15M PRN IM DECREASED GLUCOSE; Start 01/18/17 at 09:00 Glucose (Glutose) 15 gm Q15M PRN BUCCAL DECREASED GLUCOSE; Start 01/18/17 at 09 :00 Diagnostic Test (Pha) (Accu-Chek) 1 ea 02 XX Last administered on 01/20/17 02: 07; Admin Dose 1 EA; Start 01/19/17 at 02:00 Atorvastatin Calcium (Lipitor) 40 mg DAILY@21 PO Last administered on 20:42; Admin Dose 40 MG; Start 01/19/17 at 21:00 Hydralazine HCl (Apresoline) 10 mg Q8H PRN IV ELEVATED BLOOD PRESSURE Last administered on 01/19/17 23:53; Admin Dose 10 MG; Start 01/19/17 at 13:00 Divalproex Sodium (Depakote Er) 750 mg BID PO Last administered on 01/20/17 08 :20; Admin Dose 750 MG; Start 01/19/17 at 21:00 Assessment/Plan Chief Complaint/Hosp Course 51 year old female with history of diabetic neuropathy, hypertension, HLD frequent falls presents with 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 EEG showed frontal temporal sharps with epileptogenic potential. MRI Brain w/o contrast unrevealing for any acute process. Recommendations: -continue on Depakote to 750 mg q12h, level this am: 53 wnl -low dose ativan prn for further seizure activity -seizure precautions -PT evaluation placed, may benefit from outpatient PT for frequent falls dc planning, outpatient neurology follow up per patient she has a neurologist in [place] she may continue to see Problems: CARLTON CHI MD Jan 20, 2017 11:53
--- NOTE | 2017-01-20 15:04 | PN ---
Date/Time of Note Date/Time of Note DATE: 01/20/17 TIME: 14:39 Assessment/Plan VTE Prophylaxis VTE Prophylaxis Intervention: SCD's Lines/Catheters IV Catheter Type (from Nrsg): Peripheral IV Urinary Cath still in place: No Assessment/Plan Assessment/Plan 51 yo female with: 1. 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 Frequent falls . PT eval pending Seizures confirmed on EEG and MRI brain with no acute findings but wll discuss with Neurology Cont Depakote at current dose of 750 mg po bid Appreciate recommendations from Neurology, for d/c plan with outpatient PT vs Home PT. TFTs and B12 wnl . PT/OT eval for discharge. 2. Diabetes Mellitus, Insulin requiring, continue Lantus and Metformin for now, adding pre meal insulin and continue SSI. A1c 7.6 DM education consult 3. Diabetic Neuropathy: for now stable 4. Hypertension: Continue Lisinopril. BP stable 5. Hyperlipidemia. Increase Lipitor to 40 mg po qhs. 5. Acute Kidney Injury: renal function resolved, avoid nephrotoxins and renally dose all meds Renal US wnl. Prophylaxis: SCDs and Pepcid for GI ppx Disposition: Follow up with Neurology recs today Subjective 24 Hr Interval Summary Free Text/Dictation Patient doing better today Awake and alert Ongoing unsteady gait No seizures on Depakote Stable for discharge pending PT eval now Exam/Review of Systems Vital Signs Vitals Vital Signs Date Time Temp Pulse Resp B/P Pulse Ox O2 Delivery O2 Flow Rate FiO2 01/20/17 12:30 76 01/20/17 11:40 98.1 18 158/67 96 01/18/17 19:40 Nasal Cannula 2.0 Intake and Output 01/19/17 01/19/17 01/20/17 15:00 23:00 07:00 Intake Total 850 ml 200 ml Output Total 1600 ml Balance -750 ml 200 ml Exam Constitutional: alert, oriented, other (Patially blind ), well developed Respiratory: clear to auscultation, normal air movement Cardiovascular: nl pulses, regular rate and rhythm Gastrointestinal: non-tender, soft Musculoskeletal: nl extremities to inspection Extremities: normal pulses, other (no edema, clubbing or cyanosis ) Neurological: nl mental status, nl speech, other (partially blind) Results Result Diagram: 01/20/17 0710 01/20/17 0710 Results 24 hrs Laboratory Tests Test 01/19/17 16:30 01/19/17 20:41 01/20/17 07:10 01/20/17 07:59 Bedside Glucose 83 141 169 White Blood Count 8.8 Red Blood Count 3.32 L Hemoglobin 10.1 L Hematocrit 31.0 L Mean Corpuscular Volume 93.4 Mean Corpuscular Hemoglobin 30.4 Mean Corpuscular Hemoglobin Concent 32.6 Red Cell Distribution Width 12.6 Platelet Count 206 Mean Platelet Volume 10.8 H Neutrophils % 48.1 Lymphocytes % 41.8 Monocytes % 6.9 Eosinophils % 2.7 Basophils % 0.3 Nucleated Red Blood Cells % 0.0 Neutrophils # 4.2 Lymphocytes # 3.7 H Monocytes # 0.6 Eosinophils # 0.2 Basophils # 0.0 Nucleated Red Blood Cells # 0.0 Sodium Level 141 Potassium Level 4.8 Chloride Level 108 Carbon Dioxide Level 28 Anion Gap 10 Blood Urea Nitrogen 23 H Creatinine 1.00 Glucose Level 161 Calcium Level 8.5 Phosphorus Level 3.7 Magnesium Level 2.0 Valproic Acid (Depakene) Level 53 Test 01/20/17 11:38 Bedside Glucose 113 Medications Medications Current Medications Sodium Chloride (NS) 1,000 ml @ 125 mls/hr Q8H IV Last administered on 08:20; Admin Dose 125 MLS/HR; Start 01/18/17 at 07:00 Ondansetron HCl (Zofran Inj) 4 mg Q6 PRN IV NAUSEA; Start 01/18/17 at 07:00 Lorazepam (Ativan) 2 mg Q1H PRN IV seizure; Start 01/18/17 at 09:00 Aspirin (Aspirin) 81 mg DAILY PO Last administered on 01/20/17 08:21; Admin Dose 81 MG; Start 01/18/17 at 09:00 Acetaminophen (Tylenol Tab) 650 mg Q6H PRN PO PAIN LEVEL 1-3 OR FEVER Last administered on 01/20/17 08:21; Admin Dose 650 MG; Start 01/18/17 at 09:00 Insulin Glargine (Lantus) 20 unit DAILY SC Last administered on 01/20/17 08:28 ; Admin Dose 20 UNIT; Start 01/18/17 at 09:00 Lisinopril (Zestril) 20 mg DAILY PO Last administered on 01/20/17 08:21; Admin Dose 20 MG; Start 01/18/17 at 09:00 Miscellaneous Information 1 ea NOTE XX ; Start 01/18/17 at 09:00 Glucose (Glutose) 15 gm Q15M PRN PO DECREASED GLUCOSE; Start 01/18/17 at 09:00 Glucose (Glutose) 22.5 gm Q15M PRN PO DECREASED GLUCOSE; Start 01/18/17 at 09: 00 Dextrose (D50w Syringe) 25 ml Q15M PRN IV DECREASED GLUCOSE; Start 01/18/17 at 09:00 Dextrose (D50w Syringe) 50 ml Q15M PRN IV DECREASED GLUCOSE; Start 01/18/17 at 09:00 Glucagon (Glucagen) 1 mg Q15M PRN IM DECREASED GLUCOSE; Start 01/18/17 at 09:00 Glucose (Glutose) 15 gm Q15M PRN BUCCAL DECREASED GLUCOSE; Start 01/18/17 at 09 :00 Diagnostic Test (Pha) (Accu-Chek) 1 ea 02 XX Last administered on 01/20/17 02: 07; Admin Dose 1 EA; Start 01/19/17 at 02:00 Atorvastatin Calcium (Lipitor) 40 mg DAILY@21 PO Last administered on 20:42; Admin Dose 40 MG; Start 01/19/17 at 21:00 Hydralazine HCl (Apresoline) 10 mg Q8H PRN IV ELEVATED BLOOD PRESSURE Last administered on 01/19/17 23:53; Admin Dose 10 MG; Start 01/19/17 at 13:00 Divalproex Sodium (Depakote Er) 750 mg BID PO Last administered on 01/20/17 08 :20; Admin Dose 750 MG; Start 01/19/17 at 21:00 DANYELL SALAMANCA Jan 20, 2017 15:04
--- NOTE | 2017-01-20 15:19 | PDOCDIS ---
Discharge Instructions CONDITION Patient Condition: Stable HOME CARE INSTRUCTIONS: Special Diet: ADA diet ACTIVITY: Activity Restrictions: Slowly Increase Activity FOLLOW UP/APPOINTMENTS Appointments Follow up with PCP within 1 week Referral to Neurology outpatient re seizure disorder in 2 to 4 weeks DANYELL SALAMANCA Jan 20, 2017 15:19
[2017-01-20] MEDS ORDERED: METF1000 PO (15:29)
[2017-01-20] MEDS ORDERED: ZOC20 PO (15:29)
[2017-01-20] MEDS ORDERED: ASPI81TA3 PO (15:29)
[2017-01-20] MEDS ORDERED: LANT3I SC (15:29)
[2017-01-20] MEDS ORDERED: DIVA250T4 PO (15:29)
[2017-01-20] MEDS ORDERED: NOVO3I SC (15:29)
[2017-01-20] MEDS ORDERED: LISI-525 PO (15:29)
[2017-01-20] MEDS: hydrALAzine 20 MG INJ IV PRN (20:01)
[2017-01-20] MEDS: ATORVASTATIN 40 MG TAB PO SCH (20:37)
[2017-01-21] VITALS (7 sets, daily range): BP systolic 92–181; BP diastolic 55–84; PULSE 73–90; RESP 18
[2017-01-21] MEDS: ACCU-CHEK XX SCH (02:00)
[2017-01-21] MEDS: hydrALAzine 20 MG INJ IV PRN (04:23)
[2017-01-21] MEDS: INSULIN ASPART [NOVOLOG] 3 ML PEN SC SCH ×3 (07:55→08:49)
[2017-01-21 08:33] LABS: POTASSIUM 5.3 mmol/L (3.5-5.1)
[2017-01-21 08:35] LABS: CREATININE 1.19 mg/dl (0.44-1.00)
[2017-01-21 08:36] LABS: CALCIUM 8.9 mg/dl (8.4-10.2)
[2017-01-21] MEDS: metFORMIN 500 MG TAB PO SCH (08:36)
[2017-01-21] MEDS: LISINOPRIL 20 MG TAB PO SCH (08:37)
[2017-01-21] MEDS: DIVALPROEX (ER) 250 MG TAB PO SCH (08:37)
[2017-01-21] MEDS: ASPIRIN 81 MG TAB PO SCH (08:45)
[2017-01-21] MEDS: INSULIN GLARGINE [LANtus] 3 ML PEN SC SCH (08:54)
--- NOTE | 2017-01-21 11:13 | PN ---
Date/Time of Note Date/Time of Note DATE: 01/21/17 TIME: 11:04 Assessment/Plan VTE Prophylaxis VTE Prophylaxis Intervention: SCD's Lines/Catheters IV Catheter Type (from Nrsg): Peripheral IV Urinary Cath still in place: No Assessment/Plan Assessment/Plan 51 yo female with: 1. 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 Frequent falls. PT eval pending Seizures confirmed on EEG and MRI brain with no acute findings but wll discuss with Neurology Cont Depakote at current dose of 750 mg po bid Appreciate recommendations from Neurology, SNF transfer this AM TFTs and B12 wnl. 2. Diabetes Mellitus, Insulin requiring, continue Lantus and Metformin for now, adding pre meal insulin and continue SSI. A1c 7.6 Appreciate DM education recommendations, for Lantus 18 units and pre meal insulin with mild SSI and Metformin bid. 3. Diabetic Neuropathy: for now stable 4. Hypertension: Continue Lisinopril. BP stable this AM 5. Hyperlipidemia. Increase Lipitor to 40 mg po qhs. 5. Acute Kidney Injury: renal function resolved, avoid nephrotoxins and renally dose all meds Renal US wnl. Monitor electrolytes Prophylaxis: SCDs and Pepcid for GI ppx Disposition: Transfer to SNF today Subjective 24 Hr Interval Summary Free Text/Dictation Patient remains stable, repeat VSS this Am prior to transport to SNF with BP 126 /57, HR 88 Transferred to SNF this AM Exam/Review of Systems Vital Signs Vitals Vital Signs Date Time Temp Pulse Resp B/P Pulse Ox O2 Delivery O2 Flow Rate FiO2 01/21/17 08:15 73 01/21/17 07:30 98.3 18 92/55 96 01/18/17 19:40 Nasal Cannula 2.0 Intake and Output 01/20/17 01/20/17 01/21/17 14:59 22:59 06:59 Intake Total 1900 ml 300 ml Balance 1900 ml 300 ml Exam Constitutional: alert, oriented, other (partially blind ), well developed Respiratory: clear to auscultation, normal air movement Cardiovascular: nl pulses, regular rate and rhythm Gastrointestinal: non-tender, soft Musculoskeletal: nl extremities to inspection, other (no edema, clubbing or cyanosis ) Extremities: normal pulses Neurological: BATCH UNLOADER II-XII intact, nl mental status, nl speech, nl strength Results Result Diagram: 01/20/17 0710 01/21/17 0700 Results 24 hrs Laboratory Tests Test 01/20/17 11:38 01/20/17 17:27 01/20/17 20:37 01/21/17 07:00 Bedside Glucose 113 79 86 Sodium Level 141 Potassium Level 5.3 H Chloride Level 109 Carbon Dioxide Level 26 Anion Gap 11 Blood Urea Nitrogen 16 Creatinine 1.19 H Glucose Level 155 Calcium Level 8.9 Test 01/21/17 08:17 Bedside Glucose 133 Medications Medications Current Medications Ondansetron HCl (Zofran Inj) 4 mg Q6 PRN IV NAUSEA; Start 01/18/17 at 07:00 Lorazepam (Ativan) 2 mg Q1H PRN IV seizure; Start 01/18/17 at 09:00 Aspirin (Aspirin) 81 mg DAILY PO Last administered on 01/21/17 08:45; Admin Dose 81 MG; Start 01/18/17 at 09:00 Acetaminophen (Tylenol Tab) 650 mg Q6H PRN PO PAIN LEVEL 1-3 OR FEVER Last administered on 01/20/17 23:51; Admin Dose 650 MG; Start 01/18/17 at 09:00 Insulin Glargine (Lantus) 20 unit DAILY SC Last administered on 01/21/17 08:54 ; Admin Dose 20 UNIT; Start 01/18/17 at 09:00 Miscellaneous Information 1 ea NOTE XX ; Start 01/18/17 at 09:00 Glucose (Glutose) 15 gm Q15M PRN PO DECREASED GLUCOSE; Start 01/18/17 at 09:00 Glucose (Glutose) 22.5 gm Q15M PRN PO DECREASED GLUCOSE; Start 01/18/17 at 09: 00 Dextrose (D50w Syringe) 25 ml Q15M PRN IV DECREASED GLUCOSE; Start 01/18/17 at 09:00 Dextrose (D50w Syringe) 50 ml Q15M PRN IV DECREASED GLUCOSE; Start 01/18/17 at 09:00 Glucagon (Glucagen) 1 mg Q15M PRN IM DECREASED GLUCOSE; Start 01/18/17 at 09:00 Glucose (Glutose) 15 gm Q15M PRN BUCCAL DECREASED GLUCOSE; Start 01/18/17 at 09 :00 Diagnostic Test (Pha) (Accu-Chek) 1 ea 02 XX Last administered on 01/21/17 02: 00; Admin Dose 1 EA; Start 01/19/17 at 02:00 Atorvastatin Calcium (Lipitor) 40 mg DAILY@21 PO Last administered on 20:37; Admin Dose 40 MG; Start 01/19/17 at 21:00 Hydralazine HCl (Apresoline) 10 mg Q8H PRN IV ELEVATED BLOOD PRESSURE Last administered on 01/21/17 04:23; Admin Dose 10 MG; Start 01/19/17 at 13:00 Divalproex Sodium (Depakote Er) 750 mg BID PO Last administered on 01/21/17 08 :37; Admin Dose 750 MG; Start 01/19/17 at 21:00 Lisinopril (Zestril) 20 mg BID PO Last administered on 01/20/17 20:38; Admin Dose 20 MG; Start 01/20/17 at 21:00 DANYELL SALAMANCA Jan 21, 2017 11:13
--- NOTE | 2017-01-21 13:03 | DS ---
DATE OF ADMISSION: 01/18/2017 DATE OF DISCHARGE: 01/21/2017 PRIMARY CARE PHYSICIAN: Unknown. CHIEF COMPLAINT ON ADMISSION: Seizures. CONSULTS DONE ON THIS ADMISSION: Dr. Shi from neurology BRIEF HISTORY OF PRESENT ILLNESS: This is a 51-year-old female with history of diabetes mellitus, i nsulin requiring, fairly noncompliant, hypertension, hyperlipidemia, diabetic neuropathy, and diabet ic retinopathy with partial blindness who presented to the emergency department with episodes of rep eated fall and weakness over a period of a few days. The patient was apparently suspected to have s eizures; therefore, she was admitted to telemetry with neurology evaluation pending. HOSPITAL COURSE: The patient was admitted to telemetry. She had an EEG that did confirm underlying seizures. Her MRI is within normal. No acute findings. She was seen by neurology and the recomme ndation is for her to remain on Depakote. Her Depakote has to be titrated up to 750 mg p.o. b.i.d. for seizure control. Also, reviewing her insulin requirements and after discussing with diabetic ed ucator, it that seems to be evident that the patient is not very well educated regarding her diabete s. She has been taking her insulin and metformin in an erratic way. The suspicion is some of her s eizures were due to hypoglycemic episodes actually. Therefore, her insulin regimen is adjusted to L antus 18 units daily along with 6 units subcutaneously with meals. She is also on metformin which i s to be continued at 1000 mg p.o. b.i.d. The patient needs more education regarding medication comp liance. She needs physical therapy also, and further monitoring a few more days. Therefore, she is being discharged to a correction facility today. She is also noted to have acute kidney injur y on presentation which is improved with IV fluids. Her potassium has a tendency to vary a little w hich can be adjusted with diet and also by monitoring the patient while on lisinopril. The patient is discharged to correction facility today. DISPOSITION: Discharged to correction facility. DISCHARGE CONDITION: Stable. DISCHARGE DIET: Carbohydrate controlled diet. DISCHARGE ACTIVITY: Increase activity with physical therapy. FOLLOWUP: 1. The patient is to follow up with her primary care physician within 1 week. 2. Referral to neurology as an outpatient regarding her seizure disorder in 2 to 4 weeks. 3. Diabetic education and dietary followup while at correction facility. DISCHARGE MEDICATIONS: 1. Depakote ER 750 mg p.o. b.i.d. 2. Insulin, Novolin pen 5 units subcutaneously before every meal. 3. Metformin 1000 mg p.o. b.i.d. 4. Aspirin 81 mg p.o. daily. 5. Simvastatin 20 mg p.o. at bedtime. 6. Lantus 20 units subcutaneously daily, can be decreased to 18 units if needed. 7. Lisinopril 20 mg p.o. daily at least, can be titrated up to b.i.d. if needed. 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 2. Diabetes mellitus, insulin requiring. 3. Diabetic neuropathy. 4. Diabetic retinopathy with partial blindness. 5. Hypertension. 6. Hyperlipidemia. 7. 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 Dictated By: DANYELL DOMÍNGUEZ/STEPHANIE Conf#: [id number] DID#: [id number]
== END 2017-01-21 11:03 | DRG 101 ==
LOC: E/R 03:06 → TEL 05:45
PROVIDERS: ADMIT Internal Medicine; ATTEND Internal Medicine
DX: G40.89 Other seizures (principal); N17.9 Acute kidney failure, unspecified; E11.21 Type 2 diabetes mellitus with diabetic nephropathy; E11.40 Type 2 diabetes mellitus with diabetic neuropathy, unspecified; E78.5 Hyperlipidemia, unspecified; Z91.81 History of falling; Z79.4 Long term (current) use of insulin; Z91.14 Patient's other noncompliance with medication regimen; E11.319 Type 2 diabetes mellitus with unspecified diabetic retinopathy without macular edema; H54.0 Blindness, both eyes; E11.22 Type 2 diabetes mellitus with diabetic chronic kidney disease; I12.9 Hypertensive chronic kidney disease with stage 1 through stage 4 chronic kidney disease, or unspecified chronic kidney disease; N18.2 Chronic kidney disease, stage 2 (mild)
CPT/HCPCS: 36415; 70450; 70551; 71010; 80048; 80053; 80061; 80164; 82607; 82962; 83036; 83735; 84100; 84439; 84443; 84484; 85025; 85610; 85730; 90686; 93005; 95819; 96361; 96372; 96374; 97162; J0360; J1815; J7030

== ENCOUNTER 2017-03-20 17:37 | Inpatient (IN) | payer OTHER ==
[~2017-03-20] VITALS: Ht 172.7 cm; Wt 84.0 kg
[2017-03-20] MEDS: SOD CHLORIDE 0.9% 1,000 ML IV ONE ×2 (01:00)
[2017-03-20] MEDS: NA POLYST SULFON 15 GM/60 ML BTL PO ONE (01:00)
[2017-03-20] MEDS: FUROSEMIDE 20 MG INJ IV ONE (01:00)
[2017-03-20] MEDS: morphine 10 MG INJ IV ONE ×2 (01:00→22:30)
[~2017-03-20 17:37] MED LIST changes: +DIVA250T4 PO; +METF1000 PO; -Metformin Hcl PO; +NOVO3I SC; +SIMV20TA2 PO; -ZOC20 PO
[2017-03-20] MEDS ORDERED: morphine 10 MG INJ IM ONE (18:00)
--- NOTE | 2017-03-20 19:25 | RADRPT ---
PROCEDURE: X-ray left leg. CLINICAL INDICATION: Trauma to the left leg TECHNIQUE: Frontal and lateral views of the left leg COMPARISON: None. FINDINGS: Comminuted oblique fractures of the distal diaphysis of the left tibia and proximal metaphysis of th e left fibula. Mild apex anterior angulation of the distal fibular fracture. Mild lateral displaceme nt of the fracture at the proximal fibula. Remaining osseous structures are without acute fracture. Soft tissues unremarkable. IMPRESSION: Comminuted oblique fractures of the distal diaphysis of the left tibia and proximal metaphysis of th e left fibula. RPTAT: [facility] Physician Guille Date Time Electronically viewed and signed by Physician Guille on 03/20/2017 19:25 RS/
[2017-03-20] MEDS ORDERED: morphine 4 MG/ML VIAL IV STA (20:02)
[2017-03-20] MEDS ORDERED: ONDANSETRON 4 MG INJ IV STA (20:02)
[2017-03-20] MEDS ORDERED: SOD CHLORIDE 0.9% 1,000 ML IV STA (20:02)
[2017-03-20 21:43] LABS: ADD SCAN DIFF NO
--- NOTE | 2017-03-20 21:43 | RADRPT ---
PROCEDURE: XR Chest. CLINICAL INDICATION: Abdominal pain. TECHNIQUE: Single frontal view of the chest. COMPARISON: 01/18/2017. FINDINGS: The cardiomediastinal silhouette is within normal limits. The lungs are clear. There is improved inf lation bilateral lungs over interval. No signs of pleural fluid or pneumothorax are seen. The osseou s structures and soft tissues are unremarkable. IMPRESSION: No evidence for active cardiopulmonary disease. RPTAT: [facility] Physician Guille Date Time Electronically viewed and signed by Physician Guille on 03/20/2017 21:43 RS/
[2017-03-20 21:46] LABS: BASOPHILS % 0.2 % (0.0-2.0); EOSINOPHILS # 0.2 10^3/ul (0.0-0.5); EOSINOPHILS % 1.5 % (0.0-7.0); HEMATOCRIT 29.3 % (37.0-47.0); HEMOGLOBIN 9.3 g/dl (12.0-16.0); LYMPHOCYTES # 2.4 10^3/ul (0.8-2.9); LYMPHOCYTES % 23.9 % (15.0-51.0); MEAN CORPUSCULAR HEMOGLOBIN 30.4 pg (29.0-33.0); MEAN CORPUSCULAR HGB CONC 31.7 g/dl (32.0-37.0); MEAN CORPUSCULAR VOLUME 95.8 fl (82.0-101.0); MEAN PLATELET VOLUME 10.8 fl (7.4-10.4); MONOCYTE # 0.8 10^3/ul (0.3-0.9); MONOCYTES % 7.7 % (0.0-11.0); NEUTROPHIL # 6.6 10^3/ul (1.6-7.5); NEUTROPHILS % 66.3 % (39.0-77.0); PLATELET COUNT 182 10^3/UL (140-415); RED BLOOD COUNT 3.06 10^6/ul (4.20-5.40); RED CELL DISTRIBUTION WIDTH 12.8 % (11.5-14.5); WHITE BLOOD COUNT 9.9 10^3/ul (4.8-10.8)
[2017-03-20 22:00] LABS: INR 0.97; PROTIME 12.9 Sec (12.2-14.2)
[2017-03-20 22:01] LABS: PARTIAL THROMBOPLASTIN TIME 28.1 Sec (25.0-35.0)
[2017-03-20 22:04] LABS: CALCIUM 8.4 mg/dl (8.4-10.2); CREATININE 1.49 mg/dl (0.44-1.00)
[2017-03-20 22:13] LABS: POTASSIUM 6.1 mmol/L (3.5-5.1)
--- NOTE | 2017-03-20 22:38 | ERA ---
ER Documentation Chief Complaint Date/Time DATE: 03/20/17 TIME: 22:28 Chief Complaint Patient ANGELICA with complaint of left leg pain with external rotation HPI 51-year-old female who complains of left greer pain after mechanical fall. She denies any chest pain lightheadedness or dizziness prior to the fall. Paramedics placed the leg in a splint. Patient has pain in the posterior greer as well as the proximal greer. She denies any specific foot pain or ankle pain. She does not have any hip pain currently she did not hit her head or lose consciousness. ROS All systems reviewed and are negative except as per history of present illness. Medications Home Meds Active Scripts Metformin Hcl* (Metformin Hcl*) 1,000 Mg Tablet, 1000 MG PO WITH BREAKFAST DINNE , #60 TAB 3 Refills Prov:CHEIKHDANYELL Richardson 01/20/17 Insulin Aspart* (Novolog Insulin Pen*) 100 Unit/Ml Soln, 5 UNIT SC WITH MEALS for 30 Days Prov:CHEIKH,DANYELL Richardson 01/20/17 Divalproex Sodium* (Depakote ER*) 250 Mg Tabsr, 750 MG PO BID for 30 Days, TAB 3 Refills Prov:CHEIKHDANYELL Richardson 01/20/17 Simvastatin (Simvastatin) 20 Mg Tablet, 20 MG PO HS, #30 TAB 2 Refills Prov:DANYELL SALAMANCA 01/20/17 Lisinopril* (Zestril*) 20 Mg Tab, 20 MG PO BID for 30 Days, TAB 3 Refills Prov:CHEIKHDANYELL Richardson 01/20/17 Aspirin (Aspirin) 81 Mg Chew, 81 MG PO DAILY, #30 TAB 2 Refills Prov:CHEIKHDANYELL Richardson 01/20/17 Insulin Glargine* (Lantus*) 100 Unit/Ml Soln, 20 UNIT SC DAILY for 30 Days, EA 3 Refills Prov:DANYELL SALAMANCA 01/20/17 Allergies Allergies: Coded Allergies: No Known Allergy (Unverified , 06/03/15) PMhx/Soc History of Surgery: Yes (Cataract & retinal surgeries in Nov 2016) Anesthesia Reaction: No Hx Neurological Disorder: Yes Hx Respiratory Disorders: No Hx Cardiac Disorders: Yes (HTN) Hx Psychiatric Problems: No Hx Miscellaneous Medical Probl: Yes (cataract surgery, retina surgery, neuropathy, dyslipidemia, DM, cataracts) Hx Alcohol Use: No Hx Substance Use: No Hx Tobacco Use: No Physical Exam Vitals Vital Signs Date Time Temp Pulse Resp B/P Pulse Ox O2 Delivery O2 Flow Rate FiO2 03/20/17 21:57 96.6 63 12 109/55 98 Room Air 03/20/17 21:36 98.4 62 16 112/62 96 03/20/17 17:37 98.4 86 20 128/56 94 Physical Exam Const: [] Mild distress, and pain Head: Atraumatic Eyes: Normal Conjunctiva, EOMI, PRL ENT: Normal External Ears, Nose and Mouth. Neck: Full range of motion..~ No meningismus. Resp: Clear to auscultation bilaterally Cardio: Regular rate and rhythm, no murmurs Abd: Soft, non tender, non distended. Normal bowel sounds Skin: No petechiae or rashes Back: No midline or flank tenderness Ext: No cyanosis, left tibia with proximal tenting of the skin by a hard mass that is likely broken bone, tenderness at this site, no specific ankle bone tenderness or foot tenderness, no specific knee tenderness but does have medial tenderness to the proximal greer about the lateral area of the fibula. Distal pulses and capillary refill intact. No skin break. Neur: Awake and alert and oriented 3, cranial nerves II through XII intact, no cerebellar deficits. Psych: Normal Mood and Affect Result Diagram: 03/20/17211903/20/172119 Results 24 hrs Laboratory Tests Test 03/20/17 21:20 03/20/17 21:57 White Blood Count 9.910^3/ul Red Blood Count 3.0610^6/ul Hemoglobin 9.3g/dl Hematocrit 29.3% Mean Corpuscular Volume 95.8fl Mean Corpuscular Hemoglobin 30.4pg Mean Corpuscular Hemoglobin Concent 31.7g/dl Red Cell Distribution Width 12.8% Platelet Count 80548^3/UL Mean Platelet Volume 10.8fl Neutrophils % 66.3% Lymphocytes % 23.9% Monocytes % 7.7% Eosinophils % 1.5% Basophils % 0.2% Nucleated Red Blood Cells % 0.0/100WBC Neutrophils # 6.610^3/ul Lymphocytes # 2.410^3/ul Monocytes # 0.810^3/ul Eosinophils # 0.210^3/ul Basophils # 0.010^3/ul Nucleated Red Blood Cells # 0.010^3/ul Prothrombin Time 12.9Sec Prothrombin Time Ratio 1.0 INR International Normalized Ratio 0.97 Activated Partial Thromboplast Time 28.1Sec Sodium Level 142mmol/L Potassium Level 6.1mmol/L Chloride Level 114mmol/L Carbon Dioxide Level 31mmol/L Anion Gap 3 Blood Urea Nitrogen 40mg/dl Creatinine 1.49mg/dl Glucose Level 119mg/dl Calcium Level 8.4mg/dl Bedside Glucose 130mg/dL Current Medications Medications (Trade) Dose Ordered Sig/Parmjit Route PRN Reason Start Time Stop Time Status Last Admin Dose Admin Morphine Sulfate 4 mg 4 mg ONCE ONCE IM 03/20/17 18:00 03/20/17 18:01 DC 03/20/17 18:08 Sodium Chloride (NS) 1,000 ml @ 1,000 mls/hr Q1H STAT IV 03/20/17 20:02 03/20/17 21:01 DC 03/20/17 20:27 Morphine Sulfate (morphine) 4 mg ONCE STAT IV 03/20/17 20:02 03/20/17 20:14 DC 03/20/17 20:27 Ondansetron HCl 4 mg 4 mg ONCE STAT IV 03/20/17 20:02 03/20/17 20:14 DC 03/20/17 20:26 Sodium Chloride 1,000 ml @ 1,000 mls/hr Q1H ONCE IV 03/20/17 22:30 03/20/17 23:29 UNV Sodium Chloride (NS) 1,000 ml @ 1,000 mls/hr Q1H ONCE IV 03/20/17 22:30 03/20/17 23:29 UNV Sodium Polystyrene Sulfonate (Kayexalate) 60 gm ONCE ONCE PO 03/20/17 22:30 03/20/17 22:31 UNV Procedures/MDM 51-year-old female with mechanical fall leading to comminuted fracture of the tibia and fibula also having hyperkalemia and mild renal insufficiency. Spoke with Dr. Smallwood after seeing the fracture. Believe that the patient would need surgery. He requested a preoperative workup which was [place] underway. Patient was found to have hyperkalemia and was given normal saline for her renal insufficiency and 2 L as well as to rehydrate for preop with anticipated surgery date of tomorrow. She was also given 20 mg of Lasix to remove potassium from body as well as Kayexalate p.o. She was treated with 4 mg of morphine 2 separate times. Temporary splint was placed for protection of leg..call has been placed to who will be admitting for medical management. EKG interpretation: Normal sinus rhythm rate of 69, left axis deviation, no ST or T-wave changes concerning for acute ischemia, normal intervals. Nonspecific ST or T-wave abnormality. telemetry monitor interpretation: Normal sinus rhythm without arrhythmia Chest x-ray interpretation: I see no acute process, no infiltrates, wide mediastinum, no pulmonary edema, no fractures Tib-fib x-ray interpretation: Comminuted distal tibial fracture with proximal comminuted fibular fracture. Mild displacement and angulation. ED splint application note.: Traction was applied and posterior mold splint was applied to the left lower leg. Provide a good protection of the leg good straightening and neurovascular assessment was performed as a splint application. Patient was neurovascularly intact with good motor of her toes and immediate capillary refill. Tolerated well with no complications Departure Diagnosis: Primary Impression: Fracture of tibia with fibula, closed Additional Impressions: Hyperkalemia Renal insufficiency Condition: Stable NABIL OLIVA DO March 20, 2017 22:37
[2017-03-20] MEDS ORDERED: ONDANSETRON 4 MG INJ IV PRN (23:00)
[2017-03-20] MEDS ORDERED: ACETAMINOPHEN 325 MG TAB PO PRN (23:00)
[2017-03-20 23:05] VITALS: TEMP 97.9
[2017-03-20 23:54] VITALS: Ht 172.7 cm; Wt 84.0 kg
[2017-03-21] VITALS (21 sets, daily range): BP systolic 125–154; BP diastolic 56–74; PULSE 77–95; RESP 15–19
[2017-03-21] MEDS ORDERED: ONDANSETRON 4 MG INJ IV PRN (00:30)
[2017-03-21] MEDS ORDERED: GLUCAGON 1 MG INJ IM PRN (00:30)
[2017-03-21] MEDS ORDERED: DOCUSATE SODIUM 100 MG CAP PO PRN (00:30)
[2017-03-21] MEDS ORDERED: BISACODYL 10 MG SUPP PR PRN (00:30)
[2017-03-21] MEDS ORDERED: morphine 2 MG INJ IV PRN ×2 (00:30→17:00)
[2017-03-21] MEDS ORDERED: GLUCOSE GEL 15 GRAM TUBE PO PRN ×2 (00:30)
[2017-03-21] MEDS ORDERED: SOD CHLORIDE 0.9% 1,000 ML IV SCH (00:30)
[2017-03-21] MEDS ORDERED: DEXTROSE 50% 50 ML SYRINGE IV PRN ×4 (00:30→09:00)
[2017-03-21] MEDS ORDERED: NACL 0.9% 3 ML SYG IV SCH (00:30)
[2017-03-21] MEDS ORDERED: MAGNESIUM HYDROXIDE 30ML CUP PO PRN (00:30)
[2017-03-21] MEDS ORDERED: NA POLYST SULFON 15 GM/60 ML BTL PO ONE ×2 (00:30→09:00)
[2017-03-21] MEDS ORDERED: GLUCOSE GEL 15 GRAM TUBE BUCCAL PRN (00:30)
[2017-03-21] MEDS: NA POLYST SULFON 15 GM/60 ML BTL PO ONE ×2 (00:43→01:00)
[2017-03-21] MEDS: SOD CHLORIDE 0.9% 1,000 ML IV ONE ×2 (01:00)
[2017-03-21] MEDS: INSULIN ASPART [NOVOLOG] 3 ML PEN SC SCH ×6 (01:00→20:59)
[2017-03-21] MEDS: FUROSEMIDE 20 MG INJ IV ONE (01:00)
[2017-03-21] MEDS: morphine 10 MG INJ IV ONE (01:00)
--- NOTE | 2017-03-21 01:10 | RADRPT ---
PROCEDURE: X-ray left leg CLINICAL INDICATION: The patient is status post closed reduction of previously seen fractures of t he distal left tibia and proximal left fibula. TECHNIQUE: Frontal lateral views of the right tibia and fibula. COMPARISON: Today, about 3-1/2 hours ago. FINDINGS: Mildly improved anatomic alignment of fracture fragments at the distal left tibia and proximal left fibula status post closed reduction. New splint in place. IMPRESSION: Mildly improved anatomic alignment of fractures of the left tibia and fibula. RPTAT: [facility] Physician Guille Date Time Electronically viewed and signed by Physician Guille on 03/21/2017 01:10 RS/
[2017-03-21 01:32] LABS: CALCIUM 8.5 mg/dl (8.4-10.2); CREATININE 1.52 mg/dl (0.44-1.00)
[2017-03-21] MEDS ORDERED: CA CHLORIDE 10% 10 ML SYRINGE IV STA ×2 (02:14→08:46)
[2017-03-21] MEDS ORDERED: NA BICARBONATE 8.4% 50 ML SYG IV STA ×2 (02:14→08:46)
[2017-03-21] MEDS ORDERED: INSULIN REGULAR 10 ML INJ IV STA (02:14)
[2017-03-21 07:01] LABS: ADD SCAN DIFF NO
[2017-03-21 07:13] LABS: BASOPHILS % 0.4 % (0.0-2.0); EOSINOPHILS # 0.2 10^3/ul (0.0-0.5); EOSINOPHILS % 2.4 % (0.0-7.0); HEMATOCRIT 28.7 % (37.0-47.0); LYMPHOCYTES # 2.8 10^3/ul (0.8-2.9); LYMPHOCYTES % 28.3 % (15.0-51.0); MEAN CORPUSCULAR HEMOGLOBIN 30.8 pg (29.0-33.0); MEAN CORPUSCULAR HGB CONC 31.4 g/dl (32.0-37.0); MEAN CORPUSCULAR VOLUME 98.3 fl (82.0-101.0); MEAN PLATELET VOLUME 11.2 fl (7.4-10.4); MONOCYTE # 0.9 10^3/ul (0.3-0.9); MONOCYTES % 9.1 % (0.0-11.0); NEUTROPHIL # 5.8 10^3/ul (1.6-7.5); NEUTROPHILS % 59.5 % (39.0-77.0); PLATELET COUNT 183 10^3/UL (140-415); RED BLOOD COUNT 2.92 10^6/ul (4.20-5.40); RED CELL DISTRIBUTION WIDTH 13.2 % (11.5-14.5); WHITE BLOOD COUNT 9.8 10^3/ul (4.8-10.8)
[2017-03-21 07:34] LABS: ALBUMIN/GLOBULIN RATIO 0.9; BILIRUBIN,INDIRECT 0.2 mg/dl (0-1.1); BILIRUBIN,TOTAL 0.2 mg/dl (0.2-1.3); CALCIUM 9.1 mg/dl (8.4-10.2); CREATININE 1.53 mg/dl (0.44-1.00); MAGNESIUM 2.1 mg/dl (1.7-2.5); PHOSPHORUS 4.1 mg/dl (2.5-4.9); TOTAL PROTEIN 6.3 g/dl (6.1-8.1)
[2017-03-21 07:37] LABS: POTASSIUM 6.2 mmol/L (3.5-5.1)
[2017-03-21] MEDS ORDERED: INSULIN REGULAR, HUMAN 100 UNIT/1 ML 3ML VIAL IV STA (08:46)
[2017-03-21] MEDS ORDERED: SOD CHLORIDE 0.45% 1,000 ML IV SCH (09:00)
[2017-03-21] MEDS: FAMOTIDINE 20 MG INJ IV SCH (09:39)
--- NOTE | 2017-03-21 10:26 | RADRPT ---
PROCEDURE: US Renal CLINICAL INDICATION: Acute renal insufficiency. TECHNIQUE: Multiple sonographic images of the kidneys and bladder were obtained. Evaluation of th e kidneys and bladder was performed as well with mccarthy scale and color and Doppler evaluation using a curved array transducer. The images were reviewed on a high-resolution PACS workstation. COMPARISON: No prior studies are available for comparison. FINDINGS: The right kidney measures 11.1 cm. The left kidney measures 10.6 cm. There is normal echogenicity within the parenchyma of the kidneys bilaterally. There are no masses or calcifications. There is mild bilateral hydronephrosis.. No perinephric fluid collection is seen. Evaluation of the urinary bladder is unremarkable. Incidental note is made of cholelithiasis. IMPRESSION: 1. Mild bilateral hydronephrosis. 2. Incidental visualization of cholelithiasis. RPTAT: [facility] Physician Roxane Date Time Electronically viewed and signed by Physician Roxane on 03/21/2017 10:25 /
[2017-03-21] MEDS ORDERED: LORAZEPAM 2 MG INJ IV PRN (10:30)
[2017-03-21] MEDS: DIVALPROEX (ER) 250 MG TAB PO SCH ×2 (10:58→21:02)
--- NOTE | 2017-03-21 11:05 | HP ---
DATE OF ADMISSION: 03/20/2017 PRIMARY CARE PHYSICIAN: Unknown. PRIMARY NEUROLOGIST: In [place] area, unknown. CHIEF COMPLAINT ON ADMISSION: Status post fall with left lower extremity pain. HISTORY OF PRESENT ILLNESS: This is a 51-year-old female with history of seizure disorder and also chronic dizziness which is most likely underlying seizures. Currently, still ongoing workup as an o utpatient and follow up with neurology, diabetes mellitus on insulin, hypertension on EBENEZER inhibitors , who presented to the emergency department status post fall with left lower extremity pain. The pa ghassan reports that she is still having her episodes of dizziness, she has had multiple falls which s he is known to have been the past. She is supposed to have physical therapy actually for that. She has a seizure disorder and she describes actually probable episodes of seizures as she reports that she feels dizzy, everything turns black, she does lose consciousness. According to the mother at [facility] bedside, the patient starts having jerking movements when it happens. He did happen yesterday. This seems to be more consistent with seizures; however, she does not seem to have prolonged postict al state. Yesterday after falling, the patient reports that she may have been out of consciousness or at least encephalopathic for a total of 5 minutes before starting to come to. She denies any palpitations, chest pain, nausea, vomiting or vertiginous symptoms. In the emergency department, she was back to baseline by the time she got there. She had a workup done. She is found to have acute kidney injur y with a creatinine up to 1.5, but also has underlying chronic kidney disease, at least stage II to III. She is found to be hyperkalemic on this admission with a potassium up to 6.1 upon arrival in [facility] ER. On repeat it was up to 7.0 and now this morning down to 6.2. She is receiving treatment for the hyperkalemia. She is receiving IV fluids for dehydration and lisinopril has been discontinued. She is currently stable. There are no signs of seizures. She is back on her Depakote. We will c heck her Depakote level. She does not have any history of coronary artery disease. No history of p ulmonary disease. No history of syncope per se, but just seizure disorder. Her EKG was stable in [facility] emergency department. From the medical standpoint, once her potassium is corrected, she can proc eed with surgery. We will monitor her closely for any seizure activities. She remained stable on t elemetry. ALLERGIES: NO KNOWN ALLERGIES. PAST MEDICAL HISTORY: 1. Gelastic seizures with frequent falls. 2. Diabetes mellitus. 3. Diabetic neuropathy. 4. Hypertension. 5. Hyperlipidemia. 6. Probable chronic kidney disease stage II to III. 7. Frequent falls. PAST SURGICAL HISTORY: None. SOCIAL HISTORY: The patient lives with family. She does not drink alcohol or use tobacco. REVIEW OF SYSTEMS: As per HPI. OUTPATIENT MEDICATIONS: 1. Lisinopril 20 mg p.o. b.i.d. 2. Simvastatin 20 mg p.o. at bedtime. 3. Aspirin 81 mg p.o. daily. 4. Depakote ER 750 mg p.o. b.i.d. 5. 5 units subcutaneously q.a.c. 6. Lantus 20 units subcutaneously daily. 7. Metformin 1000 mg p.o. b.i.d. PHYSICAL EXAMINATION: VITAL SIGNS: Temperature is 98.8, heart rate of 81, sinus rhythm, respiratory rate of 18, blood pre ssure 131/60. The patient is saturating 98% on 2 liters nasal cannula. GENERAL: She is alert and oriented x4 currently. She is not in acute distress. There are no signs of seizures since admission. HEENT: Pupils are equally round and reactive to light. Extraocular muscles are intact. Anicteric sclerae. NECK: No JVD, no thyromegaly noted. HEART: Regular rate and rhythm. LUNGS: Clear to auscultation bilaterally. ABDOMEN: Soft, nontender, nondistended. Bowel sounds are present. EXTREMITIES: She does have a left lower extremity dressing in place with an immobilizer secondary t o her left tib-fib fracture. No edema, clubbing or cyanosis noted. NEUROLOGIC: Grossly intact currently, but the exam is limited. LABORATORY DATA: White blood cell count is 9.8, hemoglobin 9.0, hematocrit 28.7, platelet count of 187. INR is 0.97. PT 12.9, PTT 28.1. Chemistry: Sodium 147, potassium 6.20 down from 7.0, chlori de 110, bicarbonate 30, BUN 40, creatinine 1.53, glucose of 145. Calcium 9.1, phosphorus 4.1, magne sium 2.1, total bilirubin 0.2, AST 20, ALT 37, alkaline phosphatase 78, albumin 3.0, triglycerides 1 80, cholesterol 146, HDL of 36. Valproic acid level is pending. Total CK is pending. EKG shows normal sinus rhythm, no acute ST or T-wave abnormalities. RADIOLOGICAL DATA: 1. Chest x-ray shows no evidence for active cardiopulmonary disease. 2. Left lower extremity tib-fib x-ray showed a comminuted oblique fractures of the distal diaphysis of the left tibia and proximal metaphysis of the left fibula, post closed reduction x-ray shows mil dly improved anatomic alignment of fractures of the tibia and fibula. ASSESSMENT AND PLAN: This is a 51-year-old female with: 1. Left hip fracture. Dr. Smallwood has been consulted. The patient had closed reduction done. She is awaiting surgery. However, she is hyperkalemic still this morning. Therefore, she is still being t reated for it. Will repeat her labs at noon and if her hyperkalemia is resolved, she may proceed [facility] surgery from a medical standpoint. Pain control with morphine and follow up further recommendati on from orthopedic surgery. 2. Acute kidney injury with probable underlying chronic kidney disease due to diabetic nephropathy likely. Her renal function is still elevated, she is on half normal saline at 125 mL an hour at thi s time. Also, we are treating her hyperkalemia. Monitor renal function. 3. Hyperkalemia. She has been treated overnight. Potassium is down to 6.2 this morning. She will be treated again this morning with insulin, calcium chloride and sodium bicarbonate, along with Pily exalate. Will repeat her potassium level at 12 today and further treatment as needed. 4. Gelastic seizure disorder, already known and worked up. Diagnosis done inpatient on her last ad mission 3 months ago. She is on Depakote. We will check a Depakote level today and adjust as neede d. Her mental status is stable. 5. Diabetes mellitus, insulin requiring. For now she is n.p.o., therefore her Lantus is on hold, a long with her premeal NovoLog. Continue sliding scale insulin. 6. Hypertension. We will discontinue her lisinopril in setting of severe hyperkalemia and acute on chronic kidney disease. Will use hydralazine as needed. 7. Chronic anemia, baseline hemoglobin around 9.0, stable so far. Will monitor postoperatively. 8. Prophylaxis: Sequential compression devices to lower extremity for DVT prophylaxis. Pepcid for GI prophylaxis. DISPOSITION: Still treating patient's hyperkalemia, and once her potassium level is within normal, she may proceed with surgery. Dictated By: DANYELL DOMÍNGUEZ/STEPHANIE Conf#: [id number] DID#: [id number]
[2017-03-21 11:18] LABS: POTASSIUM 5.3 mmol/L (3.5-5.1)
[2017-03-21 11:21] LABS: CREATININE 1.46 mg/dl (0.44-1.00)
[2017-03-21] MEDS: ACETAMINOPHEN 325 MG TAB PO PRN (12:58)
[2017-03-21 14:05] LABS: POTASSIUM 4.9 mmol/L (3.5-5.1)
--- NOTE | 2017-03-21 14:07 | HPN ---
Date/Time of Note Date/Time of Note DATE: 03/21/17 TIME: 14:06 Interval H&P Admission Note Pt. seen H&P reviewed: No system changes PRICILLA JULIEN MD March 21, 2017 14:07
[2017-03-21 14:08] LABS: CALCIUM 9.8 mg/dl (8.4-10.2); CREATININE 1.41 mg/dl (0.44-1.00)
--- NOTE | 2017-03-21 16:35 | CONS ---
DATE OF ADMISSION: 03/20/2017 DATE OF CONSULTATION: 03/21/2017 TYPE OF CONSULTATION: Orthopedic surgical consultation. HISTORY OF PRESENT ILLNESS: The patient is a 51-year-old female who was admitted on 03/20/2017 when she was brought in to the emergency room following during her seizure disorder. She was having ariana n and swelling involving her left lower extremity. She obviously had been suffering from chronic di zziness along with the seizure disorder and she developed this painful swelling involving her left l eg following a fall during one of her seizure activities. There seemed to be some amnesia following the seizure disorder. She is also known to have diabetes mellitus and hypertension. There is evid ence that she has some acute kidney injury superimposed on chronic kidney problems. PHYSICAL EXAMINATION: GENERAL: My examination revealed a 51-year-old female who is not in any acute distress. EXTREMITIES: Her left lower extremity was immobilized in a splint at this time. There was no evide nce of acute neurovascular compromise involving the left lower extremity. DIAGNOSTIC STUDIES: The x-rays of the left leg revealed an obvious spiral oblique fracture involvin g the distal metaphyseal area of the left tibia along with the obvious fracture involving the fibula r neck. X-ray report mentioned some changes in the distal fibula. However, this was not clear. DIAGNOSTIC IMPRESSION: Orthopedic surgical problem is spiral fracture involving the distal metaphys is of the left tibia combined with the fibular neck fracture with possible injury to the distal mall eolus. TREATMENT PLAN: Trial of closed reduction under anesthesia followed by immobilization in a cast. Dictated By: GREGORIO VENTURA/STEPHANIE Conf#: [id number] DID#: [id number]
[2017-03-21] MEDS: SOD CHLORIDE 0.9% 1,000 ML IV SCH (16:55)
--- NOTE | 2017-03-21 17:45 | OPR ---
DATE OF OPERATION: 03/21/2017 PREOPERATIVE DIAGNOSIS: Fracture of the distal metaphysis of the left tibia combined with the fibul ar neck fracture. POSTOPERATIVE DIAGNOSIS: Fracture of the distal metaphysis of the left tibia combined with the fibu lar neck fracture. OPERATION PERFORMED: Closed manipulative reduction of the distal metaphyseal fracture of the left t ibia followed by immobilization of the left lower extremity in a long leg cast. ANESTHESIA: Spinal anesthesia combined with general. SURGEON: Gregorio Smallwood MD. PROCEDURE AND FINDINGS: Under anesthesia, the patient was placed in supine position upon the fractu re table. Utilizing fracture table and under fluoroscopic monitoring, closed manipulative reduction was carried out by exerting distal axial traction combined with manual reduction. After confirming acceptable alignment of the fracture, the fracture was maintained utilizing ankle morrell connected to the traction and left lower extremity was then immobilized in a long leg cast. Post-reduction x- rays in the cast again showed acceptable alignment of the fracture. The patient tolerated the entir e procedure very well and was sent to the recovery room in excellent condition. Dictated By: GREGORIO VENTURA/STEPHANIE Conf#: [id number] DID#: [id number]
[2017-03-21 17:55] LABS: ADD UMIC YES; URINE BILIRUBIN (Dip) NEGATIVE (NEGATIVE); URINE BLOOD (Dip) TRACE (NEGATIVE); URINE COLOR LT. YELLOW (YELLOW); URINE GLUCOSE (Dip) NEGATIVE (NEGATIVE); URINE KETONES (Dip) NEGATIVE (NEGATIVE); URINE LEUKOCYTE ESTERASE (Dip) 2+ (NEGATIVE); URINE NITRITE (Dip) POSITIVE (NEGATIVE); URINE TOTAL PROTEIN (Dip) 2+ (NEGATIVE); URINE UROBILINOGEN (Dip) 0.2 E.U./dL (0.1-1.0)
[2017-03-21 18:02] LABS: BACTERIA,URINE MANY
--- NOTE | 2017-03-21 18:13 | RADRPT ---
PROCEDURE: X-ray left leg CLINICAL INDICATION: Postoperative left leg for fracture of the distal tibia and proximal fibula. TECHNIQUE: AP and lateral views of the left leg COMPARISON: Plain film series dated 03/20/2017. Intraoperative fluoroscopic spot films dated today, earlier in the day. FINDINGS: Mildly increased displacement of fracture fragments at the distal comminuted left tibia fracture. Ne w fracture lines are seen at the medial aspect of the left tibial diaphysis above the level of the o riginal oblique fracture. No significant change in anatomic alignment of fracture fragments proximal left fibula. There is a new splint in place. IMPRESSION: Mildly increased displacement of fracture fragments at the distal common left tibia fracture, with n ew fracture lines visualized in the medial left tibial diaphysis above the level of the regional fra cture. RPTAT: [facility] Physician Guille Date Time Electronically viewed and signed by Physician Guille on 03/21/2017 18:13 RS/
--- NOTE | 2017-03-21 18:28 | RADRPT ---
PROCEDURE: Fluoroscopic guidance with x-ray images during closed reduction of left tibial fracture . CLINICAL INDICATION: Closed reduction of left tibial fracture. TECHNIQUE: 7 x-ray images were obtained during close reduction of left tibial fracture. COMPARISON: None available FINDINGS: 57.7 seconds of fluoroscopy time was utilized during pacemaker insertion. Seventh x-ray images were obtained during the procedure in progress for guidance. Cumulative dose total is 0.88 mGy . The sp iral fracture of the left distal tibial shaft is now in good position and alignment. There is a nazario t in place. Procedure was performed by Dr. Smallwood. IMPRESSION: 1. Fluoroscopic guidance with x-ray images obtained for close reduction of left tibial fracture. RPTAT: XX .Martín Wilcox MD, Date Time Electronically viewed and signed by .Martín Wilcox MD, MD on 03/21/2017 18:28 .T/
[2017-03-21] MEDS ORDERED: NON-FORMULARY/PATIENT OWN MED (Simvastatin 20 MG) PO SCH (21:00)
[2017-03-21] MEDS: ATORVASTATIN 10 MG TAB PO SCH (21:02)
[2017-03-21] MEDS: HYDROCODONE/APAP (5/325) TAB PO PRN (21:03)
[2017-03-21] MEDS: INSULIN GLARGINE [LANtus] 3 ML PEN SC SCH (21:06)
[2017-03-22] VITALS (12 sets, daily range): BP systolic 130–157; BP diastolic 59–69; PULSE 69–100; RESP 16–19
[2017-03-22] MEDS: INSULIN ASPART [NOVOLOG] 3 ML PEN SC SCH ×7 (01:00→20:45)
[2017-03-22] MEDS: SOD CHLORIDE 0.9% 1,000 ML IV SCH ×3 (01:45→22:55)
[2017-03-22 07:11] LABS: ADD SCAN DIFF NO
[2017-03-22 07:17] LABS: BASOPHILS % 0.2 % (0.0-2.0); EOSINOPHILS # 0.3 10^3/ul (0.0-0.5); EOSINOPHILS % 3.2 % (0.0-7.0); HEMATOCRIT 23.2 % (37.0-47.0); HEMOGLOBIN 7.3 g/dl (12.0-16.0); LYMPHOCYTES # 2.2 10^3/ul (0.8-2.9); LYMPHOCYTES % 25.3 % (15.0-51.0); MEAN CORPUSCULAR HEMOGLOBIN 30.7 pg (29.0-33.0); MEAN CORPUSCULAR HGB CONC 31.5 g/dl (32.0-37.0); MEAN CORPUSCULAR VOLUME 97.5 fl (82.0-101.0); MEAN PLATELET VOLUME 10.4 fl (7.4-10.4); MONOCYTE # 0.8 10^3/ul (0.3-0.9); MONOCYTES % 8.8 % (0.0-11.0); NEUTROPHIL # 5.5 10^3/ul (1.6-7.5); NEUTROPHILS % 62.3 % (39.0-77.0); PLATELET COUNT 144 10^3/UL (140-415); RED BLOOD COUNT 2.38 10^6/ul (4.20-5.40); RED CELL DISTRIBUTION WIDTH 12.8 % (11.5-14.5); WHITE BLOOD COUNT 8.8 10^3/ul (4.8-10.8)
[2017-03-22 07:33] LABS: POTASSIUM 4.5 mmol/L (3.5-5.1)
[2017-03-22 07:36] LABS: CREATININE 1.15 mg/dl (0.44-1.00)
[2017-03-22 07:37] LABS: CALCIUM 8.3 mg/dl (8.4-10.2)
[2017-03-22 07:39] LABS: MAGNESIUM 1.7 mg/dl (1.7-2.5); PHOSPHORUS 4.1 mg/dl (2.5-4.9)
[2017-03-22] MEDS: HYDROCODONE/APAP (5/325) TAB PO PRN ×2 (08:17→16:39)
[2017-03-22] MEDS: DIVALPROEX (ER) 250 MG TAB PO SCH ×2 (08:21→20:45)
[2017-03-22] MEDS: FAMOTIDINE 20 MG INJ IV SCH (08:21)
[2017-03-22] MEDS: ENOXAPARIN 40 MG/0.4 ML SYG SC SCH (08:24)
[2017-03-22] MEDS ORDERED: SOD CHLORIDE 0.9% 250 ML IV* ONE (09:33)
--- NOTE | 2017-03-22 10:27 | PN ---
Date/Time of Note Date/Time of Note DATE: 03/22/17 TIME: 10:19 Assessment/Plan VTE Prophylaxis VTE Prophylaxis Intervention: LMWH Lines/Catheters IV Catheter Type (from Nrsg): Saline Lock Urinary Cath still in place: Yes (placed post-op, spainal anesthesia/LLE in cast.) Reason Cath still needed: other (indicate) (post op ) Assessment/Plan Assessment/Plan 51-year-old female with: 1. Left Tib/fib fracture. POD#1 s/p closed manipulative reduction of the distal metaphyseal fracture of the left tibia followed by immobilization of the left lower extremity in a long leg cast. NWB LLE Dr Smallwood following and following further recs Pain control and PT eval 2. Acute kidney injury with probable underlying chronic kidney disease due to diabetic nephropathy likely. Also with positive UA Treating for UTI with Cipro while awaiting Urine cx results 3. Hyperkalemia. Resolved Hold of Jerry inhibitor. 4. Gelastic seizure disorder, already known and worked up. Diagnosis done inpatient on her last admission 3 months ago. Continue Depakote. MS stable. 5. Diabetes mellitus, insulin requiring. On ADA diet Back on LAntus and will also adjust SSI and resume pre meal insulin. 6. Hypertension. Off lisinopril Continue hydralazine as needed. 7. Chronic anemia, baseline hemoglobin around 9.0, Hb at 7.3 this AM Plan for 2 units pRBC today Prophylaxis: Sequential compression devices to lower extremity for DVT prophylaxis. Pepcid for GI prophylaxis. DISPOSITION: D/c plan in the next 24 hrs if stable and OK per ortho. Subjective 24 Hr Interval Summary Free Text/Dictation Patient doing well , POD#1 Hb down to 7.3 today, will be receiving 2 units pRBC PT eval today and d/c plan in the next 24 hrs if OK with ortho, may need ARU placement Exam/Review of Systems Vital Signs Vitals Vital Signs Date Time Temp Pulse Resp B/P Pulse Ox O2 Delivery O2 Flow Rate FiO2 03/22/17 08:17 87 03/22/17 03:52 97.2 18 133/59 98 03/21/17 18:00 Nasal Cannula 2.0 Intake and Output 03/21/17 03/21/17 03/22/17 15:00 23:00 07:00 Intake Total 500 ml 350 ml Output Total 900 ml Balance 500 ml -550 ml Exam Constitutional: alert, oriented, well developed Respiratory: clear to auscultation, normal air movement Cardiovascular: nl pulses, regular rate and rhythm Gastrointestinal: non-tender, soft Musculoskeletal: nl extremities to inspection (in cast and patient to be LLE NWB), other Extremities: normal pulses 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 YELLOW Urine Clarity CLEAR Urine pH 5.0 Urine Specific [place] 1.025 Urine Ketones NEGATIVE Urine Nitrite POSITIVE H Urine Bilirubin NEGATIVE Urine Urobilinogen 0.2 E.U./dL Urine Leukocyte Esterase 2+ H Urine Microscopic RBC 5-10 Urine Microscopic WBC >200 Urine Epithelial Cells FEW Urine Bacteria MANY Urine Hemoglobin TRACE Urine Glucose NEGATIVE Urine Total Protein 2+ H Bedside Glucose 153 141 298 H Test 03/22/17 06:05 03/22/17 07:02 03/22/17 08:20 Bedside Glucose 182 128 White Blood Count 8.8 Red Blood Count 2.38 L Hemoglobin 7.3 L Hematocrit 23.2 L Mean Corpuscular Volume 97.5 Mean Corpuscular Hemoglobin 30.7 Mean Corpuscular Hemoglobin Concent 31.5 L Red Cell Distribution Width 12.8 Platelet Count 144 # Mean Platelet Volume 10.4 Neutrophils % 62.3 Lymphocytes % 25.3 Monocytes % 8.8 Eosinophils % 3.2 Basophils % 0.2 Nucleated Red Blood Cells % 0.0 Neutrophils # 5.5 Lymphocytes # 2.2 Monocytes # 0.8 Eosinophils # 0.3 Basophils # 0.0 Nucleated Red Blood Cells # 0.0 Sodium Level 146 H Potassium Level 4.5 Chloride Level 117 H Carbon Dioxide Level 31 Anion Gap 3 L Blood Urea Nitrogen 28 H Creatinine 1.15 H Glucose Level 145 Calcium Level 8.3 L Phosphorus Level 4.1 Magnesium Level 1.7 Medications Medications Current Medications Insulin Aspart (Novolog Insulin Pen) NOVOLOG *MODERATE* ALGORI... Q4 SC Last administered on 03/22/17 06:08; Admin Dose 4 UNIT; Start 03/21/17 at 01:00 Divalproex Sodium (Depakote Er) 750 mg BID PO Last administered on 03/22/17 08 :21; Admin Dose 750 MG; Start 03/21/17 at 09:00 Insulin Glargine (Lantus) 15 unit QHS SC Last administered on 03/21/17 21:06; Admin Dose 15 UNIT; Start 03/21/17 at 21:00 Ondansetron HCl (Zofran Inj) 4 mg Q6H PRN IV NAUSEA AND/OR VOMITING; Start at 00:30 Acetaminophen (Tylenol Tab) 650 mg Q6H PRN PO PAIN LEVEL 1-3 OR FEVER Last administered on 03/21/17 12:58; Admin Dose 650 MG; Start 03/21/17 at 00:30 Morphine Sulfate (morphine) 2 mg Q4H PRN IV SEVERE PAIN LEVEL 7-10; Start 03/21 at 00:30 Docusate Sodium (Colace) 100 mg Q12H PRN PO CONSTIPATION; Start 03/21/17 at 00: 30 Magnesium Hydroxide (Milk Of Mag) 30 ml DAILY PRN PO CONSTIPATION; Start at 00:30 Bisacodyl (Dulcolax Supp) 10 mg DAILY PRN [place] CONSTIPATION; Start 03/21/17 at 00 :30 Famotidine (Pepcid Iv) 20 mg DAILY IV Last administered on 03/22/17 08:21; Admin Dose 20 MG; Start 03/21/17 at 09:00 Miscellaneous Information 1 ea NOTE XX ; Start 03/21/17 at 00:30 Glucose (Glutose) 15 gm Q15M PRN PO DECREASED GLUCOSE; Start 03/21/17 at 00:30 Glucose (Glutose) 22.5 gm Q15M PRN PO DECREASED GLUCOSE; Start 03/21/17 at 00: 30 Dextrose (D50w Syringe) 25 ml Q15M PRN IV DECREASED GLUCOSE Last administered on 03/21/17 09:52; Admin Dose 25 ML; Start 03/21/17 at 00:30 Dextrose (D50w Syringe) 50 ml Q15M PRN IV DECREASED GLUCOSE; Start 03/21/17 at 00:30 Glucagon (Glucagen) 1 mg Q15M PRN IM DECREASED GLUCOSE; Start 03/21/17 at 00:30 Glucose (Glutose) 15 gm Q15M PRN BUCCAL DECREASED GLUCOSE; Start 03/21/17 at 00 :30 Atorvastatin Calcium (Lipitor) 10 mg DAILY@21 PO Last administered on 21:02; Admin Dose 10 MG; Start 03/21/17 at 21:00 Lorazepam 1 mg 1 mg Q6H PRN IV SEIZURES; Start 03/21/17 at 10:30 Sodium Chloride (NS) 1,000 ml @ 100 mls/hr Q10H IV Last administered on 01:45; Admin Dose 100 MLS/HR; Start 03/21/17 at 16:55 Enoxaparin Sodium (Lovenox) 40 mg DAILY SC Last administered on 03/22/17 08:24 ; Admin Dose 40 MG; Start 03/22/17 at 09:00 Acetaminophen/ Hydrocodone Bitart ([place] (5/325)) 1 tab Q3H PRN PO PAIN Last administered on 03/22/17 08:17; Admin Dose 1 TAB; Start 03/21/17 at 17:00 Morphine Sulfate 2 mg 2 mg Q3H PRN IV pain; Start 03/21/17 at 17:00 Ciprofloxacin/ Dextrose (Cipro Ivpb) 200 ml @ 200 mls/hr Q12 IVPB ; Start 03/22 at 10:30 DANYELL SALAMANCA March 22, 2017 10:27
[2017-03-22] MEDS: CIPROFLOXACIN 400MG/D5W 200 ML IVPB SCH ×2 (14:59→20:44)
[2017-03-22] MEDS: ATORVASTATIN 10 MG TAB PO SCH (20:44)
[2017-03-22] MEDS: INSULIN GLARGINE [LANtus] 3 ML PEN SC SCH (21:05)
[2017-03-23] VITALS (12 sets, daily range): BP systolic 123–181; BP diastolic 57–76; PULSE 75–92; RESP 16–18
[2017-03-23] MEDS: HYDROCODONE/APAP (5/325) TAB PO PRN ×4 (00:35→20:37)
[2017-03-23] MEDS: INSULIN ASPART [NOVOLOG] 3 ML PEN SC SCH ×9 (00:39→20:50)
[2017-03-23 08:00] LABS: ADD SCAN DIFF NO
[2017-03-23 08:07] LABS: BASOPHILS % 0.2 % (0.0-2.0); EOSINOPHILS # 0.3 10^3/ul (0.0-0.5); EOSINOPHILS % 2.1 % (0.0-7.0); HEMOGLOBIN 8.6 g/dl (12.0-16.0); LYMPHOCYTES # 2.9 10^3/ul (0.8-2.9); LYMPHOCYTES % 24.7 % (15.0-51.0); MEAN CORPUSCULAR HEMOGLOBIN 30.9 pg (29.0-33.0); MEAN CORPUSCULAR HGB CONC 33.1 g/dl (32.0-37.0); MEAN CORPUSCULAR VOLUME 93.5 fl (82.0-101.0); MONOCYTE # 1.1 10^3/ul (0.3-0.9); MONOCYTES % 9.6 % (0.0-11.0); NEUTROPHIL # 7.4 10^3/ul (1.6-7.5); PLATELET COUNT 144 10^3/UL (140-415); RED BLOOD COUNT 2.78 10^6/ul (4.20-5.40); WHITE BLOOD COUNT 11.7 10^3/ul (4.8-10.8)
[2017-03-23 08:23] LABS: CALCIUM 8.2 mg/dl (8.4-10.2); CREATININE 1.07 mg/dl (0.44-1.00); POTASSIUM 3.9 mmol/L (3.5-5.1)
[2017-03-23] MEDS: FAMOTIDINE 20 MG INJ IV SCH (08:23)
[2017-03-23] MEDS: CIPROFLOXACIN 400MG/D5W 200 ML IVPB SCH ×2 (08:24→20:37)
[2017-03-23] MEDS: DIVALPROEX (ER) 250 MG TAB PO SCH ×2 (08:24→20:37)
[2017-03-23 08:25] LABS: MAGNESIUM 1.5 mg/dl (1.7-2.5); PHOSPHORUS 3.2 mg/dl (2.5-4.9)
[2017-03-23] MEDS: ENOXAPARIN 40 MG/0.4 ML SYG SC SCH (08:29)
[2017-03-23] MEDS ORDERED: MAGNESIUM SULFATE 2 GM/50 ML 50 ML IVPB ONE (10:00)
[2017-03-23 12:23] LABS: HEMOGLOBIN 8.2 g/dl (12.0-16.0)
--- NOTE | 2017-03-23 12:48 | PN ---
Date/Time of Note Date/Time of Note DATE: 03/23/17 TIME: 12:42 Assessment/Plan VTE Prophylaxis VTE Prophylaxis Intervention: LMWH Lines/Catheters IV Catheter Type (from Nrsg): Peripheral IV Urinary Cath still in place: No Assessment/Plan Assessment/Plan 51-year-old female with: 1. Left Tib/fib fracture. POD#2 s/p closed manipulative reduction of the distal metaphyseal fracture of the left tibia followed by immobilization of the left lower extremity in a long leg cast. NWB LLE Pain control and PT eval ongoing, rec for SNF vs Home with HH PT Dr Smallwood following and following further recs 2. Acute kidney injury with probable underlying chronic kidney disease due to diabetic nephropathy likely. Improving renal function On IVF and monitoring renal function 3. UTI with GNR and enterococcus per Urine cx Will give fosfomycin 3 gram po x 1 today and follow up with final sensitivities for enterococcus, on Cipro while awaiting final sensitivities of GNR 4. Hyperkalemia. Resolved. Hold of Jerry inhibitor. 5. Gelastic seizure disorder, already known and worked up. Diagnosis done inpatient on her last admission 3 months ago. Continue Depakote. MS stable. 6. Diabetes mellitus, insulin requiring. On ADA diet On Lantus, pre meal insulin and SSI. 7. Hypertension. Off lisinopril. Continue hydralazine as needed. 8. Chronic anemia, baseline hemoglobin around 9.0, s/p 2 units pRBC and Hb at 8.3-8.5 Start FeSO4 bid. Prophylaxis: Sequential compression devices to lower extremity for DVT prophylaxis. Pepcid for GI prophylaxis. DISPOSITION: D/c plan in the next 24 hrs if stable and OK per ortho. Subjective 24 Hr Interval Summary Free Text/Dictation Patient doing Ok Hb around 8.3 to 8.5 Pain better controlled Final Ucx pending but Bassett removed yesterday Exam/Review of Systems Vital Signs Vitals Vital Signs Date Time Temp Pulse Resp B/P Pulse Ox O2 Delivery O2 Flow Rate FiO2 03/23/17 12:31 78 03/23/17 11:28 99.2 18 123/58 91 03/21/17 18:00 Nasal Cannula 2.0 Intake and Output 03/22/17 03/22/17 03/23/17 15:00 23:00 07:00 Intake Total 2080 ml 250 ml Output Total 400 ml 750 ml Balance 1680 ml -500 ml Exam Constitutional: alert, oriented, other, well developed Respiratory: clear to auscultation, normal air movement Cardiovascular: nl pulses, regular rate and rhythm Gastrointestinal: non-tender, soft Musculoskeletal: other (LLE in cast ) Extremities: normal pulses 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, nl mental status, nl speech, nl strength Results Result Diagram: 03/23/17 1145 03/23/17 0652 Results 24 hrs Laboratory Tests Test 03/22/17 17:31 03/22/17 20:41 03/23/17 05:13 03/23/17 06:52 Bedside Glucose 244 H 139 Lab Scanned Report BLOOD TRANSFUSION White Blood Count 11.7 #H Red Blood Count 2.78 L Hemoglobin 8.6 L Hematocrit 26.0 L Mean Corpuscular Volume 93.5 Mean Corpuscular Hemoglobin 30.9 Mean Corpuscular Hemoglobin Concent 33.1 Red Cell Distribution Width 13.0 Platelet Count 144 Mean Platelet Volume 11.0 H Neutrophils % 63.0 Lymphocytes % 24.7 Monocytes % 9.6 Eosinophils % 2.1 Basophils % 0.2 Nucleated Red Blood Cells % 0.0 Neutrophils # 7.4 Lymphocytes # 2.9 Monocytes # 1.1 H Eosinophils # 0.3 Basophils # 0.0 Nucleated Red Blood Cells # 0.0 Sodium Level 139 Potassium Level 3.9 Chloride Level 108 Carbon Dioxide Level 28 Anion Gap 7 L Blood Urea Nitrogen 19 # Creatinine 1.07 H Glucose Level 73 # Calcium Level 8.2 L Phosphorus Level 3.2 Magnesium Level 1.5 L Test 03/23/17 08:08 03/23/17 11:45 03/23/17 12:13 Bedside Glucose 82 178 Hemoglobin 8.2 L Hematocrit 25.0 L Medications Medications Current Medications Insulin Aspart (Novolog Insulin Pen) NOVOLOG *MODERATE* ALGORI... Q4 SC Last administered on 03/23/17 12:29; Admin Dose 2 UNIT; Start 03/21/17 at 01:00 Divalproex Sodium (Depakote Er) 750 mg BID PO Last administered on 03/23/17 08 :24; Admin Dose 750 MG; Start 03/21/17 at 09:00 Insulin Glargine (Lantus) 15 unit QHS SC Last administered on 03/22/17 21:05; Admin Dose 15 UNIT; Start 03/21/17 at 21:00 Ondansetron HCl (Zofran Inj) 4 mg Q6H PRN IV NAUSEA AND/OR VOMITING; Start at 00:30 Acetaminophen (Tylenol Tab) 650 mg Q6H PRN PO PAIN LEVEL 1-3 OR FEVER Last administered on 03/21/17 12:58; Admin Dose 650 MG; Start 03/21/17 at 00:30 Morphine Sulfate (morphine) 2 mg Q4H PRN IV SEVERE PAIN LEVEL 7-10; Start 03/21 at 00:30 Docusate Sodium (Colace) 100 mg Q12H PRN PO CONSTIPATION; Start 03/21/17 at 00: 30 Magnesium Hydroxide (Milk Of Mag) 30 ml DAILY PRN PO CONSTIPATION; Start at 00:30 Bisacodyl (Dulcolax Supp) 10 mg DAILY PRN [place] CONSTIPATION; Start 03/21/17 at 00 :30 Famotidine (Pepcid Iv) 20 mg DAILY IV Last administered on 03/23/17 08:23; Admin Dose 20 MG; Start 03/21/17 at 09:00 Miscellaneous Information 1 ea NOTE XX ; Start 03/21/17 at 00:30 Glucose (Glutose) 15 gm Q15M PRN PO DECREASED GLUCOSE; Start 03/21/17 at 00:30 Glucose (Glutose) 22.5 gm Q15M PRN PO DECREASED GLUCOSE; Start 03/21/17 at 00: 30 Dextrose (D50w Syringe) 25 ml Q15M PRN IV DECREASED GLUCOSE Last administered on 03/21/17 09:52; Admin Dose 25 ML; Start 03/21/17 at 00:30 Dextrose (D50w Syringe) 50 ml Q15M PRN IV DECREASED GLUCOSE; Start 03/21/17 at 00:30 Glucagon (Glucagen) 1 mg Q15M PRN IM DECREASED GLUCOSE; Start 03/21/17 at 00:30 Glucose (Glutose) 15 gm Q15M PRN BUCCAL DECREASED GLUCOSE; Start 03/21/17 at 00 :30 Atorvastatin Calcium (Lipitor) 10 mg DAILY@21 PO Last administered on 20:44; Admin Dose 10 MG; Start 03/21/17 at 21:00 Lorazepam (Ativan) 1 mg Q6H PRN IV SEIZURES; Start 03/21/17 at 10:30 Enoxaparin Sodium (Lovenox) 40 mg DAILY SC Last administered on 03/23/17 08:29 ; Admin Dose 40 MG; Start 03/22/17 at 09:00 Acetaminophen/ Hydrocodone Bitart ([place] (5/325)) 1 tab Q3H PRN PO PAIN Last administered on 03/23/17 08:24; Admin Dose 1 TAB; Start 03/21/17 at 17:00 Morphine Sulfate 2 mg 2 mg Q3H PRN IV pain; Start 03/21/17 at 17:00 Ciprofloxacin/ Dextrose (Cipro Ivpb) 200 ml @ 200 mls/hr Q12 IVPB Last administered on 03/23/17 08:24; Admin Dose 200 MLS/HR; Start 03/22/17 at 10:30 DANYELL SALAMANCA March 23, 2017 12:48
[2017-03-23] MEDS: FERROUS SULFATE (EC) 325 MG TAB PO SCH ×2 (13:51→20:37)
[2017-03-23] MEDS ORDERED: FOSFOMYCIN 3 GM PACKET PO SCH (14:00)
--- NOTE | 2017-03-23 15:11 | PN ---
DATE: 03/23/2017 Very comfortable with the cast. Postop x-ray in the recovery room showed some displacement of the a lignment at the fracture site which was not obvious while the patient was under anesthesia immediate ly following the reduction and cast immobilization. The patient also seems to have a ____ with the cast immobilization. Because of the undesirable changes, it was decided to carry out the open surgi annie procedure, namely intramedullary nailing of the left tibia. Dictated By: GREGORIO VENTURA/STEPHANIE Conf#: [id number] DID#: [id number]
[2017-03-23] MEDS: ATORVASTATIN 10 MG TAB PO SCH (20:36)
[2017-03-23] MEDS: FAMOTIDINE 20 MG TAB PO SCH (20:36)
[2017-03-23] MEDS: INSULIN GLARGINE [LANtus] 3 ML PEN SC SCH (20:51)
[2017-03-24] VITALS (54 sets, daily range): BP systolic 87–177; BP diastolic 41–78; PULSE 77–86; RESP 5–18
[2017-03-24] MEDS: INSULIN ASPART [NOVOLOG] 3 ML PEN SC SCH ×9 (01:00→23:45)
[2017-03-24 07:46] LABS: ADD SCAN DIFF NO
[2017-03-24 07:49] LABS: BASOPHILS % 0.1 % (0.0-2.0); EOSINOPHILS # 0.2 10^3/ul (0.0-0.5); EOSINOPHILS % 1.7 % (0.0-7.0); HEMATOCRIT 25.1 % (37.0-47.0); HEMOGLOBIN 8.4 g/dl (12.0-16.0); LYMPHOCYTES # 2.9 10^3/ul (0.8-2.9); LYMPHOCYTES % 26.5 % (15.0-51.0); MEAN CORPUSCULAR HEMOGLOBIN 31.1 pg (29.0-33.0); MEAN CORPUSCULAR HGB CONC 33.5 g/dl (32.0-37.0); MEAN PLATELET VOLUME 10.7 fl (7.4-10.4); MONOCYTE # 1.2 10^3/ul (0.3-0.9); MONOCYTES % 11.1 % (0.0-11.0); NEUTROPHIL # 6.5 10^3/ul (1.6-7.5); NEUTROPHILS % 60.1 % (39.0-77.0); PLATELET COUNT 134 10^3/UL (140-415); RED CELL DISTRIBUTION WIDTH 12.7 % (11.5-14.5); WHITE BLOOD COUNT 10.8 10^3/ul (4.8-10.8)
[2017-03-24 08:19] LABS: CREATININE 1.24 mg/dl (0.44-1.00); POTASSIUM 3.8 mmol/L (3.5-5.1)
[2017-03-24] MEDS: ENOXAPARIN 40 MG/0.4 ML SYG SC SCH ×2 (09:00→09:15)
[2017-03-24] MEDS: FAMOTIDINE 20 MG TAB PO SCH ×2 (09:07→23:39)
[2017-03-24] MEDS: CIPROFLOXACIN 400MG/D5W 200 ML IVPB SCH ×2 (09:07→23:41)
[2017-03-24] MEDS: FERROUS SULFATE (EC) 325 MG TAB PO SCH ×2 (09:07→23:39)
[2017-03-24] MEDS: DIVALPROEX (ER) 250 MG TAB PO SCH ×2 (09:08→23:39)
--- NOTE | 2017-03-24 11:57 | PN ---
Date/Time of Note Date/Time of Note DATE: 03/24/17 TIME: 11:41 Assessment/Plan VTE Prophylaxis VTE Prophylaxis Intervention: LMWH Lines/Catheters IV Catheter Type (from Nrsg): Saline Lock Urinary Cath still in place: No Assessment/Plan Assessment/Plan 51-year-old female with: 1. Left Tib/fib fracture. POD#3 s/p closed manipulative reduction of the distal metaphyseal fracture of the left tibia followed by immobilization of the left lower extremity in a long leg cast. NWB LLE. Per Dr Smallwood XRays yesterday showing fracture displaced again so he need to do internal fixation with IM nailing Pain control, NPO for procedure today Likely SNF d/c on Tuesday if stable per Dr Smallwood. 2. Acute kidney injury with probable underlying chronic kidney disease due to diabetic nephropathy likely. Improving renal function On IVF and monitoring renal function 3. UTI with E coli and and enterococcus Already treated Enterococcus with fosfomycin 3 gram po x 1 yesterday and continue Cipro for E coli. 4. Hyperkalemia. Resolved and Creatinine better. . 5. Gelastic seizure disorder, already known and worked up. Diagnosis done inpatient on her last admission 3 months ago. Continue Depakote. MS stable. 6. Diabetes mellitus, insulin requiring. On ADA diet On Lantus, pre meal insulin and SSI. 7. Hypertension. Back on lisinopril for BP control since renal function much better and hyperkalemia resolved. Hydralazine as needed. 8. Chronic anemia, baseline hemoglobin around 9.0, s/p 2 units pRBC and Hb at 8.3-8.6 On FeSO4 bid. Check CBC in AM, may need pRBC Prophylaxis: Sequential compression devices to lower extremity for DVT prophylaxis. Pepcid for GI prophylaxis. DISPOSITION: To OR today for internal fixation of Left tib/fib fracture Subjective 24 Hr Interval Summary Free Text/Dictation Patient remains clinically stable for OR today for internal fixation Renal function improved Exam/Review of Systems Vital Signs Vitals Vital Signs Date Time Temp Pulse Resp B/P Pulse Ox O2 Delivery O2 Flow Rate FiO2 03/24/17 11:30 99.1 83 18 177/78 95 03/21/17 18:00 Nasal Cannula 2.0 Intake and Output 03/23/17 03/23/17 03/24/17 15:00 23:00 07:00 Intake Total 1050 ml Balance 1050 ml Exam Constitutional: alert, oriented, other (left cast in place ), well developed Respiratory: clear to auscultation, normal air movement Cardiovascular: nl pulses, regular rate and rhythm Gastrointestinal: non-tender, soft Musculoskeletal: other (left LE cast in place, NWB LLE) Extremities: normal pulses 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, nl mental status, nl speech Results Result Diagram: 03/24/17 0708 03/24/17 0708 Results 24 hrs Laboratory Tests Test 03/23/17 11:45 03/23/17 12:13 03/23/17 17:22 03/23/17 20:32 Hemoglobin 8.2 L Hematocrit 25.0 L Bedside Glucose 178 128 202 Test 03/24/17 06:18 03/24/17 07:08 03/24/17 07:54 Bedside Glucose 139 139 White Blood Count 10.8 Red Blood Count 2.70 L Hemoglobin 8.4 L Hematocrit 25.1 L Mean Corpuscular Volume 93.0 Mean Corpuscular Hemoglobin 31.1 Mean Corpuscular Hemoglobin Concent 33.5 Red Cell Distribution Width 12.7 Platelet Count 134 L Mean Platelet Volume 10.7 H Neutrophils % 60.1 Lymphocytes % 26.5 Monocytes % 11.1 H Eosinophils % 1.7 Basophils % 0.1 Nucleated Red Blood Cells % 0.0 Neutrophils # 6.5 Lymphocytes # 2.9 Monocytes # 1.2 H Eosinophils # 0.2 Basophils # 0.0 Nucleated Red Blood Cells # 0.0 Sodium Level 142 Potassium Level 3.8 Chloride Level 110 Carbon Dioxide Level 31 Anion Gap 5 L Blood Urea Nitrogen 19 Creatinine 1.24 H Glucose Level 135 # Calcium Level 8.0 L Magnesium Level 2.3 Medications Medications Current Medications Insulin Aspart (Novolog Insulin Pen) NOVOLOG *MODERATE* ALGORI... Q4 SC Last administered on 03/23/17 20:50; Admin Dose 4 UNIT; Start 03/21/17 at 01:00 Divalproex Sodium (Depakote Er) 750 mg BID PO Last administered on 03/24/17 09: 08; Admin Dose 750 MG; Start 03/21/17 at 09:00 Insulin Glargine (Lantus) 15 unit QHS SC Last administered on 03/23/17 20:51; Admin Dose 15 UNIT; Start 03/21/17 at 21:00 Ondansetron HCl (Zofran Inj) 4 mg Q6H PRN IV NAUSEA AND/OR VOMITING; Start at 00:30 Acetaminophen (Tylenol Tab) 650 mg Q6H PRN PO PAIN LEVEL 1-3 OR FEVER Last administered on 03/21/17 12:58; Admin Dose 650 MG; Start 03/21/17 at 00:30 Morphine Sulfate (morphine) 2 mg Q4H PRN IV SEVERE PAIN LEVEL 7-10; Start 03/21 at 00:30 Docusate Sodium (Colace) 100 mg Q12H PRN PO CONSTIPATION; Start 03/21/17 at 00: 30 Magnesium Hydroxide (Milk Of Mag) 30 ml DAILY PRN PO CONSTIPATION; Start at 00:30 Bisacodyl (Dulcolax Supp) 10 mg DAILY PRN [place] CONSTIPATION; Start 03/21/17 at 00 :30 Miscellaneous Information 1 ea NOTE XX ; Start 03/21/17 at 00:30 Glucose (Glutose) 15 gm Q15M PRN PO DECREASED GLUCOSE; Start 03/21/17 at 00:30 Glucose (Glutose) 22.5 gm Q15M PRN PO DECREASED GLUCOSE; Start 03/21/17 at 00: 30 Dextrose (D50w Syringe) 25 ml Q15M PRN IV DECREASED GLUCOSE Last administered on 03/21/17 09:52; Admin Dose 25 ML; Start 03/21/17 at 00:30 Dextrose (D50w Syringe) 50 ml Q15M PRN IV DECREASED GLUCOSE; Start 03/21/17 at 00:30 Glucagon (Glucagen) 1 mg Q15M PRN IM DECREASED GLUCOSE; Start 03/21/17 at 00:30 Glucose (Glutose) 15 gm Q15M PRN BUCCAL DECREASED GLUCOSE; Start 03/21/17 at 00 :30 Atorvastatin Calcium (Lipitor) 10 mg DAILY@21 PO Last administered on 20:36; Admin Dose 10 MG; Start 03/21/17 at 21:00 Lorazepam (Ativan) 1 mg Q6H PRN IV SEIZURES; Start 03/21/17 at 10:30 Enoxaparin Sodium (Lovenox) 40 mg DAILY SC Last administered on 03/24/17 09:15 ; Admin Dose 40 MG; Start 03/22/17 at 09:00 Acetaminophen/ Hydrocodone Bitart ([place] (5/325)) 1 tab Q3H PRN PO PAIN Last administered on 03/23/17 20:37; Admin Dose 1 TAB; Start 03/21/17 at 17:00 Morphine Sulfate 2 mg 2 mg Q3H PRN IV pain; Start 03/21/17 at 17:00 Ciprofloxacin/ Dextrose (Cipro Ivpb) 200 ml @ 200 mls/hr Q12 IVPB Last administered on 03/24/17 09:07; Admin Dose 200 MLS/HR; Start 03/22/17 at 10:30 Ferrous Sulfate (Ferrous Sulfate (Ec)) 325 mg BID PO Last administered on 09:07; Admin Dose 325 MG; Start 03/23/17 at 13:00 Famotidine (Pepcid) 20 mg BID PO Last administered on 03/24/17 09:07; Admin Dose 20 MG; Start 03/23/17 at 21:00 DANYELL SALAMANCA Mar 24, 2017 11:54
[2017-03-24] MEDS ORDERED: hydrALAzine 20 MG INJ IV PRN ×2 (12:00→16:30)
[2017-03-24] MEDS: LISINOPRIL 20 MG TAB PO SCH ×2 (12:22→23:39)
[2017-03-24] MEDS ORDERED: LIDOCAINE 2% (SDV) 5 ML INJ ONE (16:24)
[2017-03-24] MEDS ORDERED: ROCURONIUM 50 MG INJ ONE (16:24)
[2017-03-24] MEDS ORDERED: PROPOFOL 20 ML ONE (16:24)
[2017-03-24] MEDS ORDERED: FENTAnyl 50 MCG/ML VIAL ONE (16:24)
[2017-03-24] MEDS ORDERED: MIDAZOLAM 1 MG/ML 2 ML INJ ONE (16:24)
[2017-03-24] MEDS ORDERED: DIPHENHYDRAMINE 50 MG INJ IV PRN (16:30)
[2017-03-24] MEDS ORDERED: ONDANSETRON 4 MG INJ IV PRN (16:30)
[2017-03-24] MEDS ORDERED: HYDROmorphONE (0.2 MG/ML) 10ML SYG IV PRN ×2 (16:30)
[2017-03-24] MEDS ORDERED: PROCHLORPERAZINE 10 MG INJ IV PRN (16:30)
[2017-03-24] MEDS ORDERED: FENTAnyl 50 MCG/ML VIAL IV PRN (16:30)
[2017-03-24] MEDS ORDERED: MEPERIDINE 25 MG INJ IV PRN (16:30)
[2017-03-24] MEDS ORDERED: LABETALOL HCL 20MG INJ IV PRN (16:30)
[2017-03-24] MEDS ORDERED: EPHEDrine SULFATE 50 MG/5 ML SYG IV PRN (16:30)
[2017-03-24] MEDS ORDERED: CEFAZOLIN 1 GM INJ ONE (16:39)
[2017-03-24] MEDS ORDERED: ONDANSETRON 4 MG INJ ONE (16:43)
[2017-03-24] MEDS ORDERED: METOCLOPRAMIDE 10 MG INJ ONE (16:43)
[2017-03-24] MEDS ORDERED: EPHEDrine SULFATE 50 MG/5 ML SYG ONE (16:46)
[2017-03-24] MEDS ORDERED: POLYMYXIN/BACITRACIN 1L IRRIG IRR ONE (17:13)
[2017-03-24] MEDS ORDERED: HYDROmorphONE 2 MG/ML SYG ONE (17:44)
[2017-03-24] MEDS ORDERED: NEOSTIGMINE 3 MG/3 ML SYRINGE ONE (18:25)
[2017-03-24] MEDS ORDERED: GLYCOPYRROLATE 1 MG INJ ONE (18:25)
[2017-03-24] MEDS ORDERED: CEFAZOLIN 1 GM/50 ML (PMX) 50 ML IVPB SCH (18:30)
--- NOTE | 2017-03-24 19:20 | OPR ---
DATE OF OPERATION: 03/24/2017 PREOPERATIVE DIAGNOSIS: Fracture involving the distal shaft of the left tibia along with fracture o f the left fibular neck. POSTOPERATIVE DIAGNOSIS: Fracture involving the distal shaft of the left tibia along with fracture of the left fibular neck. OPERATION PERFORMED: Open reduction and internal fixation of the distal shaft fracture of the left tibia utilizing intramedullary nailing technique. ANESTHESIA: General anesthesia. SURGEON: Gregorio Smallwood MD. PROCEDURE AND FINDINGS: Under anesthesia, the patient was placed in supine position upon the operat ing table. Usual prep and drape was done exposing the left lower extremity. The proximal end of th e left tibia was approached through the longitudinal incision made over the proximal portion of the left leg medial to the patellar tendon. Utilizing abdalla, the intramedullary canal was entered and the reamer guide was introduced into the intramedullary canal. This reamer guide was then threaded soraya n to the distal segment of the tibia. After confirming satisfactory position, measurement was made, and it was my estimation that we should be using a 10 mm wide x 24 cm long tibial nail. After ream ing along the reamer guide, the selected intramedullary nail in the size of 24 cm x 10 mm was pounde d in. After confirming satisfactory position of the fracture alignment and also confirming proper p osition of the intramedullary nail, this was further stabilized by inserting proximal locking screws and distal locking screws. At the end of the procedure, the alignment of the fracture was entirely satisfactory, and the position of this fixation device was proper. After irrigation and hemostasis , closure of the incision was carried out using #0 Vicryl for muscle and fascia and 2-0 Vicryl for s ubcutaneous tissues. Further closure was carried out with 2-0 Vicryl for subcutaneous tissue and sk in zachary for skin. Usual sterile pressure dressings were applied. The patient tolerated the entire procedure very well and was sent to the recovery room in excellent condition. Dictated By: GREGORIO VENTURA/STEPHANIE Conf#: [id number] DID#: [id number]
--- NOTE | 2017-03-24 20:08 | RADRPT ---
PROCEDURE: XR Tibia and Fibula. CLINICAL INDICATION: Postop fracture. TECHNIQUE: Left tibia and fibula x-rays, 2 views. COMPARISON: 03/21/2017. FINDINGS: Bone density appears normal. An intramedullary amber with proximal and distal transverse screws is no w in place within the tibia. Near anatomic alignment of the fracture fragments is observed. A commi nuted fracture of the proximal fibula is present and unchanged. The knee and ankle joints are intac t. Soft tissue edema is present. IMPRESSION: Surgical changes compatible with ORIF of a distal tibia fracture. Comminuted fracture of the proximal fibula, unchanged. RPTAT: [facility] .Elisabeth Omer MD, MD Date Time Electronically viewed and signed by .Elisabeth Omer MD, on 03/24/2017 20:07 .T/
--- NOTE | 2017-03-24 20:09 | RADRPT ---
PROCEDURE: XR Tibia and Fibula. CLINICAL INDICATION: Fracture. TECHNIQUE: Left tibia and fibula x-rays, single frontal intraoperative view. Fluoroscopy time: 17 3.5 seconds. COMPARISON: 03/21/2017. FINDINGS: An intramedullary amber with a transverse screw is seen within the visualized portion of the proximal tibia. A comminuted fracture of the proximal fibula is present. IMPRESSION: Fluoroscopic assistance provided for ORIF of tibial fracture. RPTAT: [facility] .Elisabeth Omer MD, Date Time Electronically viewed and signed by .Elisabeth Omer MD, on 03/24/2017 20:09 .T/
[2017-03-24] MEDS: ATORVASTATIN 10 MG TAB PO SCH (21:00)
[2017-03-24] MEDS: SOD CHLORIDE 0.9% 1,000 ML IV SCH (23:42)
[2017-03-24] MEDS: INSULIN GLARGINE [LANtus] 3 ML PEN SC SCH (23:45)
[2017-03-25] VITALS (12 sets, daily range): BP systolic 127–150; BP diastolic 58–68; PULSE 85–104; RESP 16–18
[2017-03-25] MEDS: HYDROCODONE/APAP (5/325) TAB PO PRN ×4 (00:11→14:58)
[2017-03-25] MEDS: INSULIN ASPART [NOVOLOG] 3 ML PEN SC SCH ×9 (01:00→21:00)
[2017-03-25 07:33] LABS: ADD SCAN DIFF NO
[2017-03-25 07:38] LABS: BASOPHILS % 0.2 % (0.0-2.0); EOSINOPHILS # 0.1 10^3/ul (0.0-0.5); EOSINOPHILS % 0.9 % (0.0-7.0); HEMATOCRIT 24.6 % (37.0-47.0); HEMOGLOBIN 7.9 g/dl (12.0-16.0); LYMPHOCYTES # 1.8 10^3/ul (0.8-2.9); LYMPHOCYTES % 16.1 % (15.0-51.0); MEAN CORPUSCULAR HEMOGLOBIN 30.5 pg (29.0-33.0); MEAN CORPUSCULAR HGB CONC 32.1 g/dl (32.0-37.0); MEAN PLATELET VOLUME 10.8 fl (7.4-10.4); MONOCYTE # 1.3 10^3/ul (0.3-0.9); MONOCYTES % 11.2 % (0.0-11.0); NEUTROPHIL # 8.1 10^3/ul (1.6-7.5); NEUTROPHILS % 71.2 % (39.0-77.0); PLATELET COUNT 134 10^3/UL (140-415); RED BLOOD COUNT 2.59 10^6/ul (4.20-5.40); RED CELL DISTRIBUTION WIDTH 12.8 % (11.5-14.5); WHITE BLOOD COUNT 11.3 10^3/ul (4.8-10.8)
[2017-03-25 08:10] LABS: MAGNESIUM 2.1 mg/dl (1.7-2.5)
[2017-03-25 08:11] LABS: CALCIUM 7.9 mg/dl (8.4-10.2); CREATININE 1.94 mg/dl (0.44-1.00); POTASSIUM 4.2 mmol/L (3.5-5.1)
[2017-03-25] MEDS ORDERED: SOD CHLORIDE 0.9% 250 ML IV* ONE (09:09)
[2017-03-25] MEDS: CIPROFLOXACIN 400MG/D5W 200 ML IVPB SCH (09:40)
[2017-03-25] MEDS: SOD CHLORIDE 0.9% 1,000 ML IV SCH ×2 (09:40→14:29)
[2017-03-25] MEDS: FERROUS SULFATE (EC) 325 MG TAB PO SCH ×2 (10:26→21:40)
[2017-03-25] MEDS: FAMOTIDINE 20 MG TAB PO SCH ×2 (10:26→21:40)
[2017-03-25] MEDS: DIVALPROEX (ER) 250 MG TAB PO SCH ×2 (10:26→21:40)
[2017-03-25] MEDS: LISINOPRIL 20 MG TAB PO SCH ×2 (10:28→21:41)
[2017-03-25] MEDS: ENOXAPARIN 40 MG/0.4 ML SYG SC SCH (10:34)
[2017-03-25] MEDS: morphine 2 MG INJ IV PRN ×2 (11:39→17:41)
--- NOTE | 2017-03-25 14:06 | PN ---
Date/Time of Note Date/Time of Note DATE: 03/25/17 TIME: 13:48 Assessment/Plan VTE Prophylaxis VTE Prophylaxis Intervention: LMWH Lines/Catheters IV Catheter Type (from Nrsg): Saline Lock Urinary Cath still in place: No Assessment/Plan Assessment/Plan 51-year-old female with: 1. Left Tib/fib fracture, s/p failed closed manipulative reduction of the distal metaphyseal fracture of the left tibia followed by immobilization of the left lower extremity in a long leg cast. POD#1 s/p open reduction and internal fixation of the distal shaft fracture of the left tibia utilizing intramedullary nailing technique. Pain control Likely SNF d/c tomorrow if stable per Dr Smallwood. 2. Acute kidney injury with probable underlying chronic kidney disease due to diabetic nephropathy likely. Renal function declined a little bit post op, Continue IVF and getting pRBC today Monitoring renal function 3. UTI with E coli and and enterococcus Already treated Enterococcus with fosfomycin 3 gram po x 1 on 03/23, no need for additional abx for Enterococcus Continuing Cipro for E coli. 4. Hyperkalemia. Resolved and Creatinine better. . 5. Gelastic seizure disorder, already known and worked up. Diagnosis done inpatient on her last admission 3 months ago. Continue Depakote. MS stable. 6. Diabetes mellitus, insulin requiring. On ADA diet On Lantus, pre meal insulin and SSI. 7. Hypertension. Back on lisinopril for BP control since renal function much better and hyperkalemia resolved. Hydralazine as needed. 8. Chronic anemia, baseline hemoglobin around 9.0, receiving additional 2 units pRBC today post op. On FeSO4 bid. F/u CBC in AM. Prophylaxis: Sequential compression devices to lower extremity for DVT prophylaxis. Pepcid for GI prophylaxis. DISPOSITION: pRBC today and likely d/c to SNF in AM if ok with Ortho Dr Smallwood. Subjective 24 Hr Interval Summary Free Text/Dictation Patient doing OK Hb down post op, getting 2 units Low grade temp, already on rx for UTI, encourage IS D/c plan to SNF in AM Exam/Review of Systems Vital Signs Vitals Vital Signs Date Time Temp Pulse Resp B/P Pulse Ox O2 Delivery O2 Flow Rate FiO2 03/25/17 12:07 92 03/25/17 11:40 100.2 17 127/58 97 03/24/17 22:31 Nasal Cannula 2.0 Intake and Output 03/24/17 03/24/17 03/25/17 15:00 23:00 07:00 Intake Total 800 ml 250 ml Output Total 30 ml 1 ml Balance 770 ml 249 ml Exam Constitutional: alert, oriented, well developed Respiratory: clear to auscultation, normal air movement Cardiovascular: nl pulses, regular rate and rhythm Gastrointestinal: non-tender, soft Musculoskeletal: other (S/p ORIF left tib/fib fracture) Extremities: normal pulses Neurological: [employer] II-XII intact, nl mental status, nl speech, other ( genralised weakness ) Results Result Diagram: 03/25/1714 03/25/1714 Results 24 hrs Laboratory Tests Test 03/24/17 18:56 03/24/17 23:37 03/25/17 06:14 03/25/17 08:40 Bedside Glucose 147 149 103 White Blood Count 11.3 H Red Blood Count 2.59 L Hemoglobin 7.9 L Hematocrit 24.6 L Mean Corpuscular Volume 95.0 Mean Corpuscular Hemoglobin 30.5 Mean Corpuscular Hemoglobin Concent 32.1 Red Cell Distribution Width 12.8 Platelet Count 134 L Mean Platelet Volume 10.8 H Neutrophils % 71.2 Lymphocytes % 16.1 Monocytes % 11.2 H Eosinophils % 0.9 Basophils % 0.2 Nucleated Red Blood Cells % 0.0 Neutrophils # 8.1 H Lymphocytes # 1.8 Monocytes # 1.3 H Eosinophils # 0.1 Basophils # 0.0 Nucleated Red Blood Cells # 0.0 Sodium Level 141 Potassium Level 4.2 Chloride Level 103 Carbon Dioxide Level 30 Anion Gap 12 # Blood Urea Nitrogen 23 H Creatinine 1.94 H Glucose Level 103 Calcium Level 7.9 L Phosphorus Level 5.0 H Magnesium Level 2.1 Test 03/25/17 10:25 03/25/17 13:19 Bedside Glucose 128 94 Medications Medications Current Medications Insulin Aspart (Novolog Insulin Pen) NOVOLOG *MODERATE* ALGORI... Q4 SC Last administered on 03/24/17 23:45; Admin Dose 2 UNIT; Start 03/21/17 at 01:00 Divalproex Sodium (Depakote Er) 750 mg BID PO Last administered on 03/25/17 10: 26; Admin Dose 750 MG; Start 03/21/17 at 09:00 Insulin Glargine (Lantus) 15 unit QHS SC Last administered on 03/24/17 23:45; Admin Dose 15 UNIT; Start 03/21/17 at 21:00 Ondansetron HCl (Zofran Inj) 4 mg Q6H PRN IV NAUSEA AND/OR VOMITING; Start at 00:30 Acetaminophen (Tylenol Tab) 650 mg Q6H PRN PO PAIN LEVEL 1-3 OR FEVER Last administered on 03/21/17 12:58; Admin Dose 650 MG; Start 03/21/17 at 00:30 Docusate Sodium (Colace) 100 mg Q12H PRN PO CONSTIPATION; Start 03/21/17 at 00: 30 Magnesium Hydroxide (Milk Of Mag) 30 ml DAILY PRN PO CONSTIPATION; Start at 00:30 Bisacodyl (Dulcolax Supp) 10 mg DAILY PRN ME CONSTIPATION; Start 03/21/17 at 00 :30 Miscellaneous Information 1 ea NOTE XX ; Start 03/21/17 at 00:30 Glucose (Glutose) 15 gm Q15M PRN PO DECREASED GLUCOSE; Start 03/21/17 at 00:30 Glucose (Glutose) 22.5 gm Q15M PRN PO DECREASED GLUCOSE; Start 03/21/17 at 00: 30 Dextrose (D50w Syringe) 25 ml Q15M PRN IV DECREASED GLUCOSE Last administered on 03/21/17 09:52; Admin Dose 25 ML; Start 03/21/17 at 00:30 Dextrose (D50w Syringe) 50 ml Q15M PRN IV DECREASED GLUCOSE; Start 03/21/17 at 00:30 Glucagon (Glucagen) 1 mg Q15M PRN IM DECREASED GLUCOSE; Start 03/21/17 at 00:30 Glucose (Glutose) 15 gm Q15M PRN BUCCAL DECREASED GLUCOSE; Start 03/21/17 at 00 :30 Atorvastatin Calcium (Lipitor) 10 mg DAILY@21 PO Last administered on 20:36; Admin Dose 10 MG; Start 03/21/17 at 21:00 Lorazepam (Ativan) 1 mg Q6H PRN IV SEIZURES; Start 03/21/17 at 10:30 Enoxaparin Sodium 40 mg 40 mg DAILY SC Last administered on 03/25/17 10:34; Admin Dose 40 MG; Start 03/22/17 at 09:00 Ciprofloxacin/ Dextrose (Cipro Ivpb) 200 ml @ 200 mls/hr Q12 IVPB Last administered on 03/25/17 09:40; Admin Dose 200 MLS/HR; Start 03/22/17 at 10:30 Ferrous Sulfate (Ferrous Sulfate (Ec)) 325 mg BID PO Last administered on 10:26; Admin Dose 325 MG; Start 03/23/17 at 13:00 Famotidine (Pepcid) 20 mg BID PO Last administered on 03/25/17 10:26; Admin Dose 20 MG; Start 03/23/17 at 21:00 Lisinopril (Zestril) 20 mg BID PO Last administered on 03/25/17 10:28; Admin Dose 20 MG; Start 03/24/17 at 12:00 Hydralazine HCl 10 mg 10 mg Q8H PRN IV ELEVATED BLOOD PRESSURE; Start 03/24/17 at 12:00 Sodium Chloride (NS) 1,000 ml @ 100 mls/hr Q10H IV Last administered on 09:40; Admin Dose 100 MLS/HR; Start 03/24/17 at 18:29 Morphine Sulfate (morphine) 2 mg Q3H PRN IV PAIN Last administered on 03/25/17 11:39; Admin Dose 2 MG; Start 03/24/17 at 18:30 Acetaminophen/ Hydrocodone Bitart ([place] (5/325)) 1 tab Q3H PRN PO PAIN Last administered on 03/25/17 10:26; Admin Dose 1 TAB; Start 03/24/17 at 18:30 Procedures Procedures DATE OF OPERATION: 03/24/2017 PREOPERATIVE DIAGNOSIS: Fracture involving the distal shaft of the left tibia along with fracture of the left fibular neck. POSTOPERATIVE DIAGNOSIS: Fracture involving the distal shaft of the left tibia along with fracture of the left fibular neck. OPERATION PERFORMED: Open reduction and internal fixation of the distal shaft fracture of the left tibia utilizing intramedullary nailing technique. ANESTHESIA: General anesthesia. SURGEON: Roman Smallwood MD. PROCEDURE AND FINDINGS: Under anesthesia, the patient was placed in supine position upon the operating table. Usual prep and drape was done exposing the left lower extremity. The proximal end of the left tibia was approached through the longitudinal incision made over the proximal portion of the left leg medial to the patellar tendon. Utilizing abdalla, the intramedullary canal was entered and the reamer guide was introduced into the intramedullary canal. This reamer guide was then threaded down to the distal segment of the tibia. After confirming satisfactory position, measurement was made, and it was my estimation that we should be using a 10 mm wide x 24 cm long tibial nail. After reaming along the reamer guide, the selected intramedullary nail in the size of 24 cm x 10 mm was pounded in. After confirming satisfactory position of the fracture alignment and also confirming proper position of the intramedullary nail, this was further stabilized by inserting proximal locking screws and distal locking screws. At the end of the procedure, the alignment of the fracture was entirely satisfactory, and the position of this fixation device was proper. After irrigation and hemostasis, closure of the incision was carried out using #0 Vicryl for muscle and fascia and 2-0 Vicryl for subcutaneous tissues. Further closure was carried out with 2-0 Vicryl for subcutaneous tissue and skin zachary for skin. Usual sterile pressure dressings were applied. The patient tolerated the entire procedure very well and was sent to the recovery room in excellent condition. Dictated By: DANYELL WILBURN MD Mar 25, 2017 13:58
[2017-03-25] MEDS: ACETAMINOPHEN 325 MG TAB PO PRN ×2 (14:58→21:40)
[2017-03-25] MEDS ORDERED: FUROSEMIDE 20 MG INJ IV ONE ×2 (17:00→18:30)
[2017-03-25] MEDS: CIPROFLOXACIN 500 MG TAB PO SCH (17:32)
[2017-03-25 19:23] LABS: ADD UMIC YES; URINE BILIRUBIN (Dip) NEGATIVE (NEGATIVE); URINE BLOOD (Dip) TRACE (NEGATIVE); URINE GLUCOSE (Dip) NEGATIVE (NEGATIVE); URINE KETONES (Dip) NEGATIVE (NEGATIVE); URINE LEUKOCYTE ESTERASE (Dip) 1+ (NEGATIVE); URINE NITRITE (Dip) NEGATIVE (NEGATIVE); URINE TOTAL PROTEIN (Dip) 2+ (NEGATIVE); URINE UROBILINOGEN (Dip) 0.2 E.U./dL (0.1-1.0)
[2017-03-25 19:33] LABS: URINE COLOR YELLOW (YELLOW)
[2017-03-25 19:40] LABS: BACTERIA,URINE MODERATE; SQUAMOUS EPITHELIAL CELL,UR MANY; URINE RBCS 0-2 /HPF (0)
[2017-03-25 19:41] LABS: URIC ACID CRYSTALS,URINE OCCASIONAL
[2017-03-25] MEDS: ATORVASTATIN 10 MG TAB PO SCH (21:40)
[2017-03-25] MEDS: INSULIN GLARGINE [LANtus] 3 ML PEN SC SCH (21:57)
[2017-03-26] VITALS (9 sets, daily range): BP systolic 139–159; BP diastolic 60–68; PULSE 73–86; RESP 17–20
[2017-03-26] MEDS: INSULIN ASPART [NOVOLOG] 3 ML PEN SC SCH ×6 (01:00→12:45)
[2017-03-26] MEDS: SOD CHLORIDE 0.9% 1,000 ML IV SCH ×2 (01:28→10:29)
[2017-03-26] MEDS: CIPROFLOXACIN 500 MG TAB PO SCH (05:49)
[2017-03-26 07:33] LABS: ADD SCAN DIFF NO
[2017-03-26 07:35] LABS: ABNORMAL IP MESSAGE 1; BASOPHILS % 0.2 % (0.0-2.0); EOSINOPHILS # 0.3 10^3/ul (0.0-0.5); EOSINOPHILS % 2.3 % (0.0-7.0); HEMATOCRIT 29.7 % (37.0-47.0); LYMPHOCYTES % 17.6 % (15.0-51.0); MEAN CORPUSCULAR HEMOGLOBIN 30.2 pg (29.0-33.0); MEAN CORPUSCULAR HGB CONC 33.3 g/dl (32.0-37.0); MEAN CORPUSCULAR VOLUME 90.5 fl (82.0-101.0); MEAN PLATELET VOLUME 10.8 fl (7.4-10.4); MONOCYTE # 1.5 10^3/ul (0.3-0.9); MONOCYTES % 13.2 % (0.0-11.0); NEUTROPHIL # 7.6 10^3/ul (1.6-7.5); NEUTROPHILS % 66.3 % (39.0-77.0); PLATELET COUNT 133 10^3/UL (140-415); RED BLOOD COUNT 3.28 10^6/ul (4.20-5.40); RED CELL DISTRIBUTION WIDTH 14.1 % (11.5-14.5); WHITE BLOOD COUNT 11.5 10^3/ul (4.8-10.8)
[2017-03-26 07:44] LABS: HEMOGLOBIN 9.9 g/dl (12.0-16.0)
[2017-03-26 07:57] LABS: CREATININE 1.65 mg/dl (0.44-1.00); POTASSIUM 4.1 mmol/L (3.5-5.1)
[2017-03-26 08:05] LABS: PHOSPHORUS 4.4 mg/dl (2.5-4.9)
[2017-03-26] MEDS: LISINOPRIL 20 MG TAB PO SCH (09:02)
[2017-03-26] MEDS: FERROUS SULFATE (EC) 325 MG TAB PO SCH (09:03)
[2017-03-26] MEDS: FAMOTIDINE 20 MG TAB PO SCH (09:03)
[2017-03-26] MEDS: DIVALPROEX (ER) 250 MG TAB PO SCH (09:03)
[2017-03-26] MEDS: ENOXAPARIN 40 MG/0.4 ML SYG SC SCH (09:04)
[2017-03-26] MEDS ORDERED: ENOX40DI12 SC (09:39)
[2017-03-26] MEDS ORDERED: ACET325T40 PO (09:39)
[2017-03-26] MEDS ORDERED: BISA10SU75 PR (09:39)
--- NOTE | 2017-03-26 10:28 | DS ---
DATE OF ADMISSION: 03/20/2017 DATE OF DISCHARGE: DISCHARGE DIAGNOSES: 1. Left tibia-fibula fracture. 2. Status post open reduction internal fixation x2. 3. Acute kidney injury. 4. Escherichia coli and Enterococcus urinary tract infection, treated. 5. Gelastic seizure disorder. 6. Type 2 diabetes mellitus. 7. Hypertension. 8. Chronic anemia. HOSPITAL COURSE: A 51-year-old female with a long history of gelastic seizure disorder, suffered a fall. She was found to have left tibia-fibula fracture. She underwent closed manipulative reductio n of the distal metaphyseal fracture of the left tibia, followed by immobilization of the left lower extremity in a long leg cast. However, she needed open reduction internal fixation of the distal s haft fracture of the left tibia utilizing intramedullary nailing technique. The patient was diagnosed with E. coli and enterococcus UTI. She was treated with fosfomycin. The patient is on Depakote for seizure prophylaxis. She is in a stable condition for discharge to skill ed nursing facility. Lovenox was prescribed for DVT prophylaxis. Dictated By: CELESTE KU/STEPHANIE Conf#: [id number] DID#: [id number]
[2017-03-26] MEDS ORDERED: DULO30CA45 PO ×3 (13:51→13:55)
[2017-03-26] MEDS: HYDROCODONE/APAP (5/325) TAB PO PRN (14:05)
[2017-03-26] MEDS: morphine 2 MG INJ IV PRN (14:06)
[2017-03-26] MEDS ORDERED: FER325 PO (14:49)
[2017-03-26] MEDS ORDERED: HYDR-2086 PO (14:53)
[2017-03-27] MEDS ORDERED: DULOXETINE 30 MG CAP DR PO SCH (09:00)
[2017-03-28 09:55] LABS: POST-TRANSFUSION BILIRUBIN 0.2 mg/dl; PRETRANSFUSION BILIRUBIN 0.2 mg/dl
== END 2017-03-26 16:28 | DRG 493 ==
LOC: E/R 17:37 → MS4 22:45
PROVIDERS: ADMIT Internal Medicine; ATTEND Internal Medicine
PROC: 0QSHXZZ Reposition Left Tibia, External Approach (ICD-10-PCS; 2017-03-21)
PROC: 30233N1 Transfusion of Nonautologous Red Blood Cells into Peripheral Vein, Percutaneous Approach (ICD-10-PCS; 2017-03-22)
PROC: 0QSH36Z Reposition Left Tibia with Intramedullary Internal Fixation Device, Percutaneous Approach (ICD-10-PCS; principal; 2017-03-24 16:00)
DX: S82.392A Other fracture of lower end of left tibia, initial encounter for closed fracture (principal); N17.9 Acute kidney failure, unspecified; E11.22 Type 2 diabetes mellitus with diabetic chronic kidney disease; N39.0 Urinary tract infection, site not specified; E87.5 Hyperkalemia; S82.442A Displaced spiral fracture of shaft of left fibula, initial encounter for closed fracture; I12.9 Hypertensive chronic kidney disease with stage 1 through stage 4 chronic kidney disease, or unspecified chronic kidney disease; D63.8 Anemia in other chronic diseases classified elsewhere; G40.802 Other epilepsy, not intractable, without status epilepticus; N18.9 Chronic kidney disease, unspecified; X58.XXXA Exposure to other specified factors, initial encounter; B95.2 Enterococcus as the cause of diseases classified elsewhere; B96.20 Unspecified Escherichia coli [E. coli] as the cause of diseases classified elsewhere; Z79.82 Long term (current) use of aspirin; Z79.4 Long term (current) use of insulin
CPT/HCPCS: 36430; 71010; 73590; 76775; 80048; 80053; 80061; 80164; 81001; 82550; 82962; 83036; 83735; 84100; 85014; 85018; 85025; 85610; 85730; 86078; 86850; 86900; 86901; 86920; 87086; 93005; 96372; 96374; 96375; 97162; J1940; C1713; J0690; J0744; J1170; J1650; J1815; J2060; J2250; J2270; J2405; J2710; J2765; J3010; J3475; J7030; J7040; P9016

== ENCOUNTER 2017-07-22 21:29 | Emergency (ER) | payer OTHER ==
[~2017-07-22] VITALS: Ht 167.6 cm; Wt 83.0 kg
[~2017-07-22 21:29] MED LIST changes: +ACET325T40 PO; +BISA10SU75 PR; +DULO30CA45 PO; +ENOX40DI12 SC; +FER325 PO; +HYDR-2086 PO
[2017-07-22 21:34] VITALS: Ht 167.6 cm; Wt 83.0 kg
--- NOTE | 2017-07-22 22:32 | RADRPT ---
PROCEDURE: XR Left Tibia and Fibula. CLINICAL INDICATION: Left lower leg pain and swelling. TECHNIQUE: Two views. Frontal and lateral. COMPARISON: 03/24/2017 FINDINGS: As seen previously, there has been open reduction and internal fixation of the fracture of the dista l shaft of the tibia with a amber in the shaft and the locking screws proximally and distally. There i s a healing fracture distally with callus formation noted. There is also a healing fracture of the p roximal shaft of the fibula with satisfactory alignment. Anterior skin zachary have been removed. Articular surfaces are intact. There is no lytic or blastic lesion. IMPRESSION: 1. Satisfactory postoperative appearance of the left tibia. 2. Healing fractures of the tibia and fibula. 3. No acute abnormality. RPTAT: QQ .Daniel Harris MD, Date Time Electronically viewed and signed by .Daniel Harris MD, on 07/22/2017 22:32 .R/
--- NOTE | 2017-07-22 22:47 | RADRPT ---
PROCEDURE: US left lower extremity veins. CLINICAL INDICATION: Left leg pain and swelling. TECHNIQUE: Multiple longitudinal and transverse images of the left lower extremity veins were obta ined with mccarthy scale and color Doppler imaging. The common femoral vein, femoral vein, and popliteal vein were evaluated. 2D grayscale measurements with compression sonography, pulsed Doppler, color D oppler, and pulsed Doppler with augmentation. COMPARISON: No prior studies are available for comparison. FINDINGS: The left common femoral, femoral and popliteal veins are normally compressible throughout. Color fl ow demonstrates normal filling of the vessels. Normal waveforms are visualized and there is normal response to augmentation. IMPRESSION: 1. No evidence of deep vein thrombosis involving the left lower extremity. RPTAT: QQ .Daniel Harris MD, MD Date Time Electronically viewed and signed by .Daniel Harris MD, on 07/22/2017 22:46 .R/
[2017-07-22] MEDS ORDERED: SULF1TAB31 PO (23:00)
[2017-07-22] MEDS ORDERED: CEPH-443 PO (23:00)
--- NOTE | 2017-07-22 23:00 | ERA ---
ER Documentation Chief Complaint Date/Time DATE: 07/22/17 TIME: 22:54 Chief Complaint swelling left leg, sp left leg surgery 3 months ago HPI 51-year-old female presenting with a chief complaints of left leg swelling 1-2 weeks. Patient is 3 months status post ORIF of left tibia/fibula. Has taken Tylenol with no relief. Worse with walking. No fever, chills. Patient has no other complaints and describes no other associated manifestations. Nursing notes have been reviewed and are consistent with history given. ROS All systems reviewed and are negative except as per history of present illness. Medications Home Meds Active Scripts Bisacodyl* (Bisacodyl*) 10 Mg Supp, 10 MG IL DAILY Y for CONSTIPATION for 14 Days, SUPP Prov:CELESTE SMITH MD 03/26/17 Acetaminophen (MAPAP) 325 Mg Tablet, 650 MG PO Q6H Y for PAIN LEVEL 1-3 OR FEVER for 14 Days, TAB Prov:CELESTE SMITH MD 03/26/17 Enoxaparin Sodium (Enoxaparin Sodium) 40 Mg/0.4 Ml Syringe, 40 MG SC DAILY for 14 Days Prov:CELESTE SMITH MD 03/26/17 Metformin Hcl* (Metformin Hcl*) 1,000 Mg Tablet, 1000 MG PO WITH BREAKFAST DINNE , #60 TAB 3 Refills Prov:DANYELL SALAMANCA 01/20/17 Insulin Aspart* (Novolog Insulin Pen*) 100 Unit/Ml Soln, 5 UNIT SC WITH MEALS for 30 Days Prov:DANYELL SALAMANCA 01/20/17 Divalproex Sodium* (Depakote ER*) 250 Mg Tabsr, 750 MG PO BID for 30 Days, TAB 3 Refills Prov:DANYELL SALAMANCA 01/20/17 Simvastatin (Simvastatin) 20 Mg Tablet, 20 MG PO HS, #30 TAB 2 Refills Prov:DANYELL SALAMANCA 01/20/17 Lisinopril* (Zestril*) 20 Mg Tab, 20 MG PO BID for 30 Days, TAB 3 Refills Prov:DANYELL SALAMANCA 01/20/17 Aspirin (Aspirin) 81 Mg Chew, 81 MG PO DAILY, #30 TAB 2 Refills Prov:DANYELL SALAMANCA 01/20/17 Insulin Glargine* (Lantus*) 100 Unit/Ml Soln, 20 UNIT SC DAILY for 30 Days, EA 3 Refills Prov:DANYELL SALAMANCA 01/20/17 Reported Medications Hydrocodone Bit-Acetaminophen* (Vicodin*) 5-300 Tab, 1 TAB PO Q4H Y for PAIN for 14 Days, TAB 03/26/17 Ferrous Sulfate* (Ferrous Sulfate*) 325 Mg Tabec, 325 MG PO BID, TAB 03/26/17 Duloxetine Hcl* (Cymbalta*) 30 Mg Capsule.dr, 30 MG PO DAILY, CAP 03/26/17 Allergies Allergies: Coded Allergies: No Known Allergy (Unverified , 06/03/15) PMhx/Soc History of Surgery: Yes (cataract both eyes, retina eye surgery) Anesthesia Reaction: No Hx Neurological Disorder: Yes Hx Respiratory Disorders: Yes (when she gets tires SOB or pressure in chest) Hx Cardiac Disorders: Yes (HTN) Hx Psychiatric Problems: No Hx Miscellaneous Medical Probl: No Hx Alcohol Use: No Hx Substance Use: No Hx Tobacco Use: No Smoking Status: Never smoker Physical Exam Vitals Vital Signs Date Time Temp Pulse Resp B/P Pulse Ox O2 Delivery O2 Flow Rate FiO2 07/22/17 21:34 97.2 92 20 127/59 97 Physical Exam Const: Well-appearing 51-year-old female no acute distress in the wheelchair on initial presentation. Head: Atraumatic Eyes: Normal Conjunctiva ENT: Normal External Ears, Nose and Mouth. Neck: Full range of motion..~ No meningismus. Resp: Clear to auscultation bilaterally Cardio: Regular rate and rhythm, no murmurs Abd: Soft, non tender, non distended. Normal bowel sounds Skin: No petechiae or rashes Back: No midline or flank tenderness Ext: Warm, TTP, mildly erythematous. No cyanosis. N/V intact. Neur: Awake and alert Psych: Normal Mood and Affect Procedures/MDM Well-appearing 51-year-old female no acute distress presenting with left lower extremity swelling and pain for the past 1-2 weeks as described in the history and physical examination. X-ray was obtained and given the following impression : 1. Satisfactory postoperative appearance of the left tibia. 2. Healing fractures of the tibia and fibula. 3. No acute abnormality. Ultrasound was obtained and was given the following impression: No evidence of DVT. I have little suspicion for bony pathology or neurovascular compromise at this time. Most likely diagnosis is cellulitis. I have little suspicion for systemic infection. Patient will be given Keflex and Bactrim. History of type 2 diabetes mellitus. Vitals are stable, no need for alternative antibiotic therapy at this time. I have spoke with the patient regarding their condition and future management. They have verbally responded that they understand their status and treatment plan. The patients vitals are stable, and their current condition is appropriate for discharge. The patient will be given discharge instructions with return precautions. Departure Diagnosis: Primary Impression: Cellulitis Qualified Code: L03.116 - Cellulitis of left lower extremity Condition: Stable Additional Instructions: Follow up with your PCP within the next 1-3 days for a more thorough evaluation and a possible referral to a specialist. Return the the emergency department immediately if symptoms worsen or change. If you have any questions regarding medications, ask your pharmacist or us before you leave. If any adverse reactions occur while taking your medications, discontinue the treatment and return to the emergency department immediately. Take your medications as directed, and complete the entire course of treatment. ROHAN WHEELER PA-C Jul 22, 2017 23:00
== END 2017-07-22 23:08 | disposition home or self-care (01) ==
LOC: FTE 21:29
DX: L03.116 Cellulitis of left lower limb (principal); I10 Essential (primary) hypertension; E11.9 Type 2 diabetes mellitus without complications; Z79.01 Long term (current) use of anticoagulants; Z79.4 Long term (current) use of insulin; Z79.82 Long term (current) use of aspirin; Z79.84 Long term (current) use of oral hypoglycemic drugs
CPT/HCPCS: 73590; 93971; Z7502

== ENCOUNTER 2018-01-07 19:23 | Inpatient (IN) | END 2018-01-09 18:52 | disposition home health service (06) | DRG 683 ==

== ENCOUNTER 2018-04-18 18:48 | Emergency (ER) | END 2018-04-19 01:58 | disposition short-term general hospital (02) ==